=== PATIENT | female | born 2000 | race Two or more races ===

== ENCOUNTER 2024-12-27 19:32 | Emergency (ER) | payer MEDICAID, OTHER ==
[~2024-12-27] VITALS: Ht 154.9 cm; Wt 73.4 kg
[2024-12-27 19:33] VITALS: BP 130/87; PULSE 90; RESP 19; TEMP 97.7; O2SAT 99
[2024-12-27] MEDS ORDERED: PREN-96 PO (20:37)
[2024-12-27] MEDS ORDERED: METR-344 PO (22:43)
== END 2024-12-27 20:10 | disposition left against medical advice (07) ==
LOC: ER 19:32
DX: R10.31 Right lower quadrant pain (principal); Z53.21 Procedure and treatment not carried out due to patient leaving prior to being seen by health care provider

== ENCOUNTER 2024-12-27 19:56 | Observation (INO) | payer MEDICAID ==
[~2024-12-27] VITALS: Ht 152.4 cm; Wt 68.9 kg
[2024-12-27] MEDS ORDERED: PREN-96 PO (20:37)
[2024-12-27] MEDS ORDERED: TERBUTALINE SULFATE 1 MG/ML 1ML VIAL SC SCH (21:00)
[2024-12-27 21:24] LABS: Vaginal Bacteria Few; Vaginal Clue Cells Few; Vaginal Epithelial Cells Many; Vaginal Trichomonas Not Present
--- NOTE | 2024-12-27 21:49 | DVH ---
OB ULTRASOUND <14 WEEKS: HISTORY: labor TECHNIQUE: Multiple real-time grayscale sonographic images of the pelvis with duplex Doppler color f low, spectral and M-mode analysis. TRANSDUCERS: Transabdominal FINDINGS: Cervix measures 3.55 cm and appears closed MALLORY: 14.36. MVP: 5.6 cm. FHR: 148 beats per minute presentation cephalic Placenta anterior IMPRESSION: 1. IUP single live fetus 30 weeks 3 days AUA corresponding to an MERLYN of 03/04/2025. 2. FHR: 148 bpm No acute abnormality detected.
[2024-12-27] MEDS ORDERED: METR-344 PO (22:43)
--- NOTE | 2024-12-27 22:52 | DVHDS2 ---
Physician Discharge Progress N Final Diagnosis: IUP at 30w 3d Round Ligament Pain Bacterial Vaginosis in Operations or Procedures: Operations or Procedures NST Limited OB Ultrasound Tocolysis Other Interventions Other Interventions S Ms Eduardo, Waldemar G 1, 0000 with EDC of 02/27, EGA 30w 3d presents to the Place and reports she felt a sharp pain in the right inguinal region. Same resolved by the time she arrives at the unit. She reports normal movement, feels no contraction, no LOF, no vaginal Bleeding. Receiving care with [facility]. O: A&O x3 NAD. Afebrile, VSS Respiration: unlabored heart and lung sounds normal. Abdomen: Gravid, non-tender to palpation Extremities: No edema EFM FHR baseline: 145bpm, moderate variability and accelerations present Contractions: 2 in 10 minutes A: Round Ligament pain Contractions P: OB US, Oral hydration Tocolysis with Terbutaline if contractions not resolved with oral hydration Wet Mount Re-assessment O: Wet Mount- positive for Clue cells Cervical length 3.5cm Contractions Resolved FHR baseline: 150bpm moderate variability, Accelerations present Contractions resolved A: Round Ligament pain Bacterial Vaginosis in Reactive NST P: Discharge home Rx Metronidazole 500mg orally every 12hours for 7days Keep appointment with OB provider as scheduled on 01/07/25 Call OB Provider office in AM for follow up Educated on relief measures for RLP, good ergonomics, need for adequate hydration - advised to increased water intake 3rd trimester emergency S&S FMC, labor & pre-eclampsia precautions reviewed with pt; advised to seek health care if any Condition on Discharge: Good Disposition: Home Discharge Instructions: Diet: Regular Activity: No Restrictions, As Tolerated Activity comment: Balance activities with rest periods Medications: Metronidazole Follow Up Care: Discharge Statement: Educated on relief measures for RLP, good ergonomics, need for adequate hydra tion - advised to increased water intake 3rd trimester emergency S&S FMC, labor & pre-eclampsia precautions reviewed with pt; advised to seek health care if any "Patient was advised to return to the ER or call 911 if any headaches, dizziness, shortness of breath, chest pain, abdominal pain, bleeding, fevers, or worsening of medical condition. Patient was counseled about treatment plan, medications, possible side effects, patientverbalized understanding. All questions were answered to the best of my ability. This discharge took greater then 30 minutes in planning, reviewing docume ntation, counseling the patient, and discussing with other team members." Visit Coding OBGYN Date of Service: Dec 27, 2024 Billing Provider: BECKY HEREDIA CNM COOK PRESSURE Common Visit Codes: 19480-IYH/OBS SAME DATE (HIGH) COOK PRESSURE Procedure Codes: 42381-82- NON-STRESS TEST BECKY HEREDIA CNM Dec 27, 2024 22:52
== END 2024-12-27 22:53 | disposition home or self-care (01) ==
LOC: LDRP 19:56
PROVIDERS: ADMIT Obstetrics & Gynecology; ATTEND Obstetrics & Gynecology
DX: O23.593 Infection of other part of genital tract in pregnancy, third trimester (principal); B96.89 Other specified bacterial agents as the cause of diseases classified elsewhere; O26.893 Other specified pregnancy related conditions, third trimester; R10.2 Pelvic and perineal pain; Z3A.30 30 weeks gestation of pregnancy; Z98.890 Other specified postprocedural states; Z79.899 Other long term (current) drug therapy
CPT/HCPCS: 59025; 76815; 81002; 87210; 94760; G0378; J3105; 96372

== ENCOUNTER 2024-12-29 07:18 | Observation (INO) | payer MEDICAID ==
[~2024-12-29 07:18] MED LIST: METR-344 PO; PREN-96 PO
--- NOTE | 2024-12-29 15:22 | DVH ---
OB ULTRASOUND <14 WEEKS: HISTORY: HX PTL TECHNIQUE: Multiple real-time grayscale sonographic images of the pelvis with duplex Doppler color f low, spectral and M-mode analysis. TRANSDUCERS: Transabdominal COMPARISON: US OBSTERICAL LIMITED on DOS: 12/27/24 Findings/ IMPRESSION: Cephalic presentation. Anterior placenta. heart rate 152 beats per minute Current MALLORY 16.4 cm, previously 14.4 cm. Cervix is closed and measures 4.2 cm.
--- NOTE | 2024-12-29 17:00 | DVHDS2 ---
Physician Discharge Progress N Final Diagnosis: testing for PTL UTI Operations or Procedures: Operations or Procedures 24yo IUP@30.5wks, +FM, denies UCs/LOF/VB. had UTI taking antibiotics still. VSS NST reactive FKC/PTL precautions reviewed Dr. Arreola consulted, agrees with POC. f/u with Dr. Arreola in office as schedule Other Interventions Other Interventions [place] [address] Ph: [phone] DIAGNOSTIC IMAGING Diagnostic Imaging Report : [id number] Signed PATIENT: ALEXA MÁRQUEZ ACCT: [id number] UNIT: [id number] : 2000 LOC: [facility] ROOM / BED: TRIAGE1 / A AGE / SEX: 24 / F ADM STATUS: ADM IN SERVICE 27 ORDERING PHYSICIAN: VIPIN LAGOS CNM PROCEDURE(s): OBLTD - OBSTERICAL LIMITED REASON: HX PTL ORDER NUMBER(s): [id number], ACCESSION NUMBER(s): [id number] OB ULTRASOUND <14 WEEKS: HISTORY: HX PTL TECHNIQUE: Multiple real-time grayscale sonographic images of the pelvis with duplex Doppler color flow, spectral and M-mode analysis. TRANSDUCERS: Transabdominal COMPARISON: US OBSTERICAL LIMITED on DOS: 12/27/24 Findings/ IMPRESSION: Cephalic presentation. Anterior placenta. heart rate 152 beats per minute Current MALLORY 16.4 cm, previously 14.4 cm. Cervix is closed and measures 4.2 cm. ATED BY: PUNEET EASON MD DICTATED DATE/TIME: 12/29/241518 SIGNED BY: PUNEET EASON MD SIGNED DATE/TIME: 12/29/241518 CC: Condition on Discharge: Stable Disposition: Home Discharge Instructions: Diet: Regular Activity: See Comment Activity comment: pelvic rest Medications: see med list Follow Up Care: Specialist: f/u with Dr. Arreola in office as schedule Discharge Statement: "Patient was advised to return to the ER or call 911 if any headaches, dizziness, shortness of breath, chest pain, abdominal pain, bleeding, fevers, or worsening of medical condition. Patient was counseled about treatment plan, medications, possible side effects, patientverbalized understanding. All questions were answered to the best of my ability. This discharge took greater then 30 minutes in planning, reviewing documentation, counseling the patient, and discussing with other team members." Visit Coding OBGYN Date of Service: Dec 29, 2024 Billing Provider: VIPIN LAGOS CNM STRATEGY MANAGER Common Visit Codes: 06594-SOSARAY OBS CARE (HIGH) STRATEGY MANAGER Procedure Codes: 31302-43- NON-STRESS TEST VIPIN LAGOS CNM Dec 29, 2024 17:00
== END 2024-12-29 15:49 | disposition home or self-care (01) ==
LOC: LDRP 13:53
PROVIDERS: ADMIT Obstetrics & Gynecology; ATTEND Obstetrics & Gynecology
DX: O60.03 Preterm labor without delivery, third trimester (principal); O23.43 Unspecified infection of urinary tract in pregnancy, third trimester; N39.0 Urinary tract infection, site not specified; Z3A.30 30 weeks gestation of pregnancy; Z98.890 Other specified postprocedural states
CPT/HCPCS: 59025; 76815; 81002; 94760; G0378

== ENCOUNTER 2025-03-04 08:58 | Observation (INO) | payer MEDICAID ==
--- NOTE | 2025-03-04 09:55 | DVH ---
BIOPHYSICAL PROFILE HISTORY: GDMA2 and PTL TECHNIQUE: Multiple transabdominal real-time grayscale sonographic images through the gravid uterus of the fetus with duplex Doppler color flow and M-mode spectral analysis FINDINGS: BIOPHYSICAL PROFILE: breathing score: 2 movement score: 2 tone score: 2 Quantitative MALLORY score: 2 (MALLORY: 11.4 Cm, MVP: 3.9 cm.) Total score: 8/8 The cervix 3.8 cm and appears closed Single live fetus in cephalic presentation. heart rate 143 beats per minute. Anterior Grade 2-3 placenta without previa or abruption Single live fetus at 40w0d Biophysical profile score 8/8 [place] [address] IMPRESSION: 1. Biophysical profile score: 8/8.
--- NOTE | 2025-03-05 11:41 | DVHDS2 ---
Physician Discharge Progress N Final Diagnosis: 40wks Operations or Procedures: Operations or Procedures nst reactive reviewed,sono Condition on Discharge: Good Disposition: Home Discharge Instructions: Diet: Regular Activity: No Restrictions, As Tolerated Medications: na Follow Up Care: Specialist: refused iol,fu in 2days Discharge Statement: "Patient was advised to return to the ER or call 911 if any headaches, dizziness, shortness of breath, chest pain, abdominal pain, bleeding, fevers, or worsening of medical condition. Patient was counseled about treatment plan, medications, possible side effects, patientverbalized understanding. All questions were answered to the best of my ability. This discharge took greater then 30 minutes in planning, reviewing documentation, counseling the patient, and discussing with other team members." Visit Coding OBGYN Date of Service: Mar 04, 2025 Billing Provider: CHARMAINE VALDEZ DO SHIRT MAKER Common Visit Codes: 17238-OTNOBBN INP/OBS CARE (HIGH) SHIRT MAKER Procedure Codes: 12669-43- NON-STRESS TEST CHARMAINE VALDEZ DO Mar 05, 2025 08:51
== END 2025-03-04 10:21 | disposition home or self-care (01) ==
LOC: LDRP 08:58
PROVIDERS: ADMIT Obstetrics & Gynecology; ATTEND Obstetrics & Gynecology
DX: O48.0 Post-term pregnancy (principal); Z3A.40 40 weeks gestation of pregnancy
CPT/HCPCS: 59025; 76819; 81002; 94760; G0378

== ENCOUNTER 2025-03-06 10:55 | Observation (INO) | payer MEDICAID ==
--- NOTE | 2025-03-06 12:10 | DVH ---
CLINICAL HISTORY: Term . COMPARISON: US BIOPHYSICAL PROFILE on DOS: 03/04/25, US OBSTERICAL LIMITED on DOS: 12/29/24, US OBSTER ICAL LIMITED on DOS: 12/27/24 TECHNIQUE: biophysical profile was performed. Transabdominal sonographic images of the fetus we re obtained. FINDINGS: The fetus is in cephalic position. heart rate measures 153 BPM. Amniotic fluid index measures 9.8 cm. The placenta is anterior in position with no visualized evidence of previa or abrupt ion. BPP profile is an overall score of 8/8, with 2/2 points for breathing, with at least one episode of breathing over a 30 second duration during a 30 minute observation, 2/2 points for m ovements, with 3 or more discrete body or limb movements, 2/2 points for tone, with one or more episodes of extremity extension with return to flexion, or opening and closing of hand, and 2/ 2 points for amniotic fluid, with at least 1 pocket of amniotic fluid that measures 2 cm in 2 perpend icular planes. IMPRESSION: BPP score of 8/8.
== END 2025-03-06 12:34 | disposition home or self-care (01) ==
LOC: LDRP 10:55
PROVIDERS: ADMIT Obstetrics & Gynecology; ATTEND Obstetrics & Gynecology
DX: O48.0 Post-term pregnancy (principal); Z3A.40 40 weeks gestation of pregnancy; Z98.890 Other specified postprocedural states
CPT/HCPCS: 59025; 76819; 81002; 94760; G0378

== ENCOUNTER 2025-03-08 06:37 | Observation (INO) | payer MEDICAID ==
--- NOTE | 2025-03-08 12:44 | DVH ---
BIOPHYSICAL PROFILE HISTORY: post dates Comparison Study: US BIOPHYSICAL PROFILE on DOS: 03/06/25, US BIOPHYSICAL PROFILE on DOS: 03/04/25, US OBSTERICAL LIMITED on DOS: 12/29/24, US OBSTERICAL LIMITED on DOS: 12/27/24 TECHNIQUE: Multiple real-time grayscale sonographic images through the gravid uterus of the fetus wi th duplex Doppler color flow and M-mode spectral analysis FINDINGS: BIOPHYSICAL PROFILE: breathing score: 157.66 movement score: 2 tone score: 2 Quantitative MALLORY score: 13.2 (MALLORY: 13.2 Cm.) Total score: 8 The cervix is not visualized Single live fetus in cephalic presentation. heart rate 157 beats per minute. Grade 2, anterior placenta without previa or abruption IMPRESSION: Biophysical profile score: 8
--- NOTE | 2025-03-08 22:59 | DVHDS2 ---
Discharge Summary Date of Admission Mar 08, 2025 at 11:52 Date of Discharge: Mar 08, 2025 Admitting Diagnosis 40+ weeks NST BPP performed Brief Hx & Hospital Course: Patient is here good movement for NST BPP scheduled. Both reassuring and performed Operations or Procedures NST Bpp Condition at Discharge: Good Final Diagnosis/Problems List 40 +weeks Discharge Disposition: Home Discharge Instruct/Medications Diet: Regular Activity: No Restrictions, As Tolerated Activity comment: Kick counts labor precautions Follow Up/Referral: As scheduled NST BPP Scheduled Metronidazole (Flagyl), 500 MG PO BID, (Reported) Vit W/ Ferrous Fumara ( One Daily), 1 TAB PO DAILY, (Reported) Discharge Statement: "Patient was advised to return to the ER or call 911 if any headaches, dizziness, shortness of breath, chest pain, abdominal pain, bleeding, fevers, or worsening of medical condition. Patient was counseled about treatment plan, medications, possible side effects, patientverbalized understanding. All questions were answered to the best of my ability. This discharge took greater then 30 minutes in planning, reviewing documentation, counseling the patient, and discussing with other team members." ASSESSMENT ASSESSMENT Assessment Visit Coding OBGYN Date of Service: Mar 08, 2025 Billing Provider: TAB SANCHEZ DO CAR CHANGER Common Visit Codes: [id number] INP/OBS CARE(MOD), 35739-[id number] INP/OBS CARE(HIGH), 86724-COU/OBS SAME DATE (LOW) CAR CHANGER Procedure Codes: 02749-52- NON-STRESS TEST TAB SANCHEZ DO Mar 08, 2025 22:59
== END 2025-03-08 12:05 | disposition home or self-care (01) ==
LOC: LDRP 11:52
PROVIDERS: ADMIT Obstetrics & Gynecology; ATTEND Obstetrics & Gynecology
DX: O48.0 Post-term pregnancy (principal); Z3A.40 40 weeks gestation of pregnancy; Z98.890 Other specified postprocedural states
CPT/HCPCS: 59025; 76819; 81002; 94760; G0378

== ENCOUNTER 2025-03-10 15:51 | Observation (INO) | payer MEDICAID ==
--- NOTE | 2025-03-10 17:25 | DVH ---
BIOPHYSICAL PROFILE HISTORY: Term Gestation TECHNIQUE: Multiple transabdominal real-time grayscale sonographic images through the gravid uterus of the fetus with duplex Doppler color flow and M-mode spectral analysis FINDINGS: BIOPHYSICAL PROFILE: breathing score: 2 movement score: 2 tone score: 2 Quantitative MALLORY score: 2 (MALLORY: 16.0 cm, MVP: 4.6 cm.) Total score: 8/8 The cervix obscured by head Single live fetus in cephalic presentation. heart rate 149 beats per minute. Anterior Grade 2 placenta without previa or abruption Single live fetus at 40 weeks 6 days Biophysical profile score 8/8 corresponding to an MERLYN of 03/04/2025 IMPRESSION: 1. Biophysical profile score: 8/8
--- NOTE | 2025-03-12 14:47 | DVHDS2 ---
Physician Discharge Progress N Final Diagnosis: post dates 40wks Operations or Procedures: Operations or Procedures nst reactive reviwed,sono Other Interventions Other Interventions refuses induction understands risk and complication of postdates,possib of iufd,macrosomia and otehr morbidity/mortality issues related to postdaytes Condition on Discharge: Good Disposition: Home Discharge Instructions: Diet: Regular Activity: No Restrictions, As Tolerated Medications: na Follow Up Care: Specialist: 2d Discharge Statement: "Patient was advised to return to the ER or call 911 if any headaches, di zziness, shortness of breath, chest pain, abdominal pain, bleeding, fevers, or worsening of medical condition. Patient was counseled about treatment plan, medications, possible side effects, patientverbalized understanding. All questions were answered to the best of my ability. This discharge took greater then 30 minutes in planning, reviewing documentation, counseling the patient, and discussing with other team members." Visit Coding OBGYN Date of Service: Mar 11, 2025 Billing Provider: CHARMAINE VALDEZ DO EMT PARAMEDIC Common Visit Codes: 94448-CILHMMT OBS CARE (HIGH) EMT PARAMEDIC Procedure Codes: 88679-35- NON-STRESS TEST CHARMAINE VALDEZ DO Mar 12, 2025 14:46
== END 2025-03-10 17:42 | disposition home or self-care (01) ==
LOC: LDRP 15:51 → UNDOADMOB 15:51 → LDRP 16:23 → UNDODISOB 17:42
PROVIDERS: ADMIT Obstetrics & Gynecology; ATTEND Obstetrics & Gynecology
DX: O48.0 Post-term pregnancy (principal); Z3A.40 40 weeks gestation of pregnancy; Z98.890 Other specified postprocedural states
CPT/HCPCS: 59025; 76819; 81002; 94760; G0378

== ENCOUNTER 2025-03-12 07:10 | Observation (INO) | payer MEDICAID ==
[~2025-03-12] VITALS: Ht 154.9 cm; Wt 78.9 kg
--- NOTE | 2025-03-12 16:06 | DVH ---
BIOPHYSICAL PROFILE HISTORY: Post Dates TECHNIQUE: Multiple transabdominal real-time grayscale sonographic images through the gravid uterus of the fetus with duplex Doppler color flow and M-mode spectral analysis FINDINGS: BIOPHYSICAL PROFILE: breathing score: 2 movement score: 2 tone score: 2 Quantitative MALLORY score: 2 (MALLORY: 13.9 cm, MVP: 5.0 cm.) Total score: 8/8 The cervix obscured by head Single live fetus in cephalic presentation. heart rate 161 beats per minute. Anterior Grade 3 placenta without previa or abruption Single live fetus at41 weeks 1 day Biophysical profile score 8/8 [place] [address] IMPRESSION: 1. Biophysical profile score: 8/8
--- NOTE | 2025-03-12 18:31 | DVHDS2 ---
Physician Discharge Progress N Final Diagnosis: IUP 41 wk Secondary Diagnosis: Encounter for surveillance Operations or Procedures: Operations or Procedures NST/BPP/MALLORY all WNL Commentary: Commentary PATIENT: ALEXA MÁRQUEZ ACCT: [id number] UNIT: [id number] : 2000 LOC: [facility] ROOM / BED: TRIAGE1 / A AGE / SEX: 25 / F ADM STATUS: DIS IN SERVICE 1403 ORDERING PHYSICIAN: BRITTNY MARTINEZ DO PROCEDURE(s): BPP - BIOPHYSICAL PROFILE REASON: Post Dates ORDER NUMBER(s): [id number], ACCESSION NUMBER(s): [id number] BIOPHYSICAL PROFILE HISTORY: Post Dates TECHNIQUE: Multiple transabdominal real-time grayscale sonographic images through the gravid uterus of the fetus with duplex Doppler color flow and M-mode spectral analysis FINDINGS: BIOPHYSICAL PROFILE: breathing score: 2 movement score: 2 tone score: 2 Quantitative MALLORY score: 2 (MALLORY: 13.9 cm, MVP: 5.0 cm.) Total score: 8/8 The cervix obscured by head Single live fetus in cephalic presentation. heart rate 161 beats per minute. Anterior Grade 3 placenta without previa or abruption Single live fetus at41 weeks 1 day Biophysical profile score 8/8 [place] [id number] IMPRESSION: 1. Biophysical profile score: 8/8 ATED BY: LIANA KOCH Jr., DO Condition on Discharge: Stable Disposition: Home Discharge Instructions: Diet: Regular Activity: Light activity Follow Up/Referral: As scheduled; Recommended labor induction, but patient declined. Repeat NST/BPP in 48hr Medications: N/A Follow Up Care: Discharge Statement: "Patient was advised to return to the ER or call 911 if any headaches, dizziness, shortness of breath, chest pain, abdominal pain, bleeding, fevers, or worsening of medical condition. Patient was counseled about treatment plan, medications, possible side effects, patientverbalized understanding. All questions were answered to the best of my ability. This discharge took greater then 30 minutes in planning, reviewing documentation, counseling the patient, and discussing with other team members." Visit Coding OBGYN Date of Service: Mar 12, 2025 Billing Provider: BRITTNY MARTINEZ DO ADMINISTRATIVE SUPERVISOR Common Visit Codes: 73030-LTO/OBS SAME DATE (HIGH) ADMINISTRATIVE SUPERVISOR Procedure Codes: 63130-14- NON-STRESS TEST BRITTNY MARTINEZ DO Mar 12, 2025 18:31
== END 2025-03-12 15:41 | disposition home or self-care (01) ==
LOC: LDRP 14:02
PROVIDERS: ADMIT Obstetrics & Gynecology; ATTEND Obstetrics & Gynecology
DX: O48.0 Post-term pregnancy (principal); Z3A.41 41 weeks gestation of pregnancy; Z98.890 Other specified postprocedural states; Z79.899 Other long term (current) drug therapy
CPT/HCPCS: 59025; 76819; 81002; 94760; G0378

== ENCOUNTER 2025-03-14 05:54 | Inpatient (IN) | payer MEDICAID ==
[~2025-03-14] VITALS: Ht 154.9 cm; Wt 78.9 kg
[2025-03-14] MEDS ORDERED: NALBUPHINE HCL 10 MG/1ml INJECTION IV PRN (20:30)
[2025-03-14] MEDS ORDERED: LIDOCAINE 2%HCL (LOCAL ANESTH.) INJ 20ML MDV IJ PRN (20:30)
[2025-03-14 21:37] LABS: Urine Protein, UAD Negative (Negative)
[2025-03-14 21:38] LABS: Hematocrit 37.8 % (36.0-46.0); Hemoglobin 13.3 g/dL (12.2-16.2); Mean Corpuscular Hemoglobin 30.7 pg (28.0-32.0); Mean Corpuscular Volume 87.7 fL (80.0-100.0); Nucleated Red Blood Cells % 0.0 %
--- NOTE | 2025-03-14 21:38 | DVHHP2 ---
OB CC & HPI Date Date of Admission: Mar 14, 2025 Patient Identification: : 1 Para: 0 EDC: Mar 04, 2025 Chief Complaints: Reason for admission: induction of labor Indication for induction: post dates Admission Nurse Assessment Rev: Yes History of Present Complaints L&D Admission Note Subjective 03/14/2025 25 y/o (0,0,0,0) @ 41 w3 d EGA presents to the Place for IOL for postdates / Grade 3 Placenta Reports of good movement Denies VB/LOF/dysuira Received care with Dr Arreola LMP: 05/28/2024 EDC: 03/04/[address] Arreola - normal course No known complications in Blood Type: A Positive HIV: Non Reactive GBS: Negative Medical History OB: G#1 Current PMH: Denies PSH: Denies Medications: PNV Social Hist: Denies Objective PE:A&O x3, Well groomed Afebrile, VSS Heart & Lungs: Normal sound Abdomen: Gravid non- tender, SVE : CX Closed Assessment Admission for IOL for Postdate Grade 3 Placenta 25 y/o (0,0,0,0) IUP 41w3d FHR baseline 145 bpm, moderate variability Accelerations : Present Decelerations: Absent Preliminary ultrasound report Cephalic presentation EFW 7lb 15oz / 3600 grams Plan Admission IVF Bedside ultrasound for Presentation / EFW Misoprostol 50 mcg oral for method of IOL Plan of care discussed with Patient and partner Process, Risks, benefits, of available management options discussed, Internal monitoring of UCs & FHT, AROM, amnioinfusion etc only when indicated. Patient agrees to starting with misoprostol Informed Consent obtained Consent for possible blood transfusion obtained. All questions answered. Admit to Place for Labor / IOL Routine L&D Admission orders EFM per policy Encourage ambulation and/exercises / frequent position change to facilitate labor & descent Supportive care Anticipate Past Medical History Cardiac: No pertinent Hx Pulmonary: No pertinent Hx Central Nervous System: No pertinent Hx GI: No pertinent Hx Hemotology/Oncology: No pertinent Hx Hepatobiliary: No pertinent Hx Psychiatric: No pertinent Hx Musculoskeletal: No pertinent Hx Rheumotologic: No pertinent Hx Infectious Disease: No peritnent Hx ENT: No pertinent Hx Renal/: No pertinent Hx Endocrine: No pertinent Hx Dermatology: No pertinent Hx Past Surgical History: No pertinent Hx OB History OB History Care: Good Care Ultrasounds: Normal mid trimester US Obstetrical Complications: None Medical Complications: None Other Concerns: Grade 3 Placenta Allergies: Coded Allergies: NO KNOWN ALLERGIES (Unverified , 12/27/24) Home Meds Reported Medications Metronidazole (Flagyl) 500 Mg Tab, 500 MG PO BID for 7 Days, MG 12/27/24 Vit W/ Ferrous Fumara ( One Daily) Daily Tab, 1 TAB PO DAILY, #90 TAB 3 Refills 12/27/24 Current Medications Current Medications Medications (Trade) Dose Ordered Sig/Luis Route PRN Reason Start Time Stop Time Status Last Admin Lactated Ringer's 1,000 ml @ 125 mls/hr Q8H IV 03/14/25 20:30 Nalbuphine HCl (Nubain) 10 mg Q4HP PRN IV MODERATE PAIN (4-6 PAIN SCALE) 03/14/25 20:30 Witch Kareen (Tucks) 1 pad PRN PRN TOP PERINEAL AREA DISCOMFORT 03/14/25 20:30 Sodium Lauryl Sulfate (Phisoderm) 240 ml PRN PRN TOP PERINEAL AREA DISCOMFORT 03/14/25 20:30 Benzocaine (Dermoplast) 1 applic PRN PRN TOP PERINEAL AREA DISCOMFORT 03/14/25 20:30 Misoprostol (Cytotec) 50 mcg Q4HPRN PRN PO CERVICAL RIPENING 03/14/25 20:30 Lidocaine HCl (Xylocaine) 20 ml ONCE PRN IJ PERINEAL AREA DISCOMFORT 03/14/25 20:30 Family & Social History Family/Social History Blood Type: A+ Rubella: immune RPR/VDRL: Negative GBS Status: Negative HBsAG: Negative Review of Systems Constitutional: No symptom reported Ears, Nose, & Throat: No symptom reported Eyes: No symptom reported Pulmonary/Respiratory: No symptom reported Cardiovascular: No symptom reported Gastrointestinal: No symptom reported Genitourinary: No symptom reported Musculoskeletal: No symptom reported Skin: No symptom reported Psychiatric: No symptom reported Endocrine: No symptom reported Hemotologic/Lymphatic: No symptom reported OB Admission Exam Physical Exam HEENT: NCAT Heart: Rhythm Normal Lungs: Clear Abdomen: Gravid Extremities: Normal Reflexes: Normal Pelvic Exam: CX Closed Cervical Dilatation: None Membranes: Intact Heart Rate: 140's Accelerations: Accelerations Present Decelerations: No Decelerations Short Term Variability: Present Leadite Heater Variability: Average (6-25) Contractions on Admission: None Intensity: Mild OB Plan Plan Admitting Diagnosis: induction of labor Plan: Induction Induction Methd: Misoprostol protocol Visit Coding OBGYN Date of Service: Mar 14, 2025 Billing Provider: SABRINA CHACON CNM PHOTO LAB MANAGER Common Visit Codes: 65263-IBMGXEX INP/OBS CARE (MOD) SABRINA CHACONMNov 2024 21:38
[2025-03-14 21:52] LABS: Alanine Aminotransferase 16 U/L (7-40); Albumin 3.9 g/dL (3.2-4.8); Anion Gap 14 (5-15); BUN/Creatinine Ratio 10.1 (10.0-20.0); Bilirubin, Total 0.4 mg/dL (0.2-1.0); Blood Urea Nitrogen 10 mg/dL (9-23); Calcium 9.3 mg/dL (8.7-10.4); Carbon Dioxide 21 mmol/L (20-31); Chloride 105 mmol/L (98-107); Glucose 76 mg/dL (74-106); Potassium 3.7 mmol/L (3.5-5.1); Sodium 140 mmol/L (136-145); Total Protein 7.2 g/dL (5.7-8.2)
[2025-03-14 21:55] LABS: Alkaline Phosphatase 156 U/L (46-116)
[2025-03-14 21:58] LABS: INR 0.93 (0.9-1.15); Partial Thromboplastin Time 28.2 SEC (24.5-34.5); Prothrombin Time 9.9 sec (9.3-11.8)
[2025-03-14 22:04] LABS: Uric Acid 4.7 mg/dL (3.1-7.8)
[2025-03-14 23:18] LABS: Amphetamine Screen, Urine Neg (NEGATIVE); Barbiturate Scree,Urine Neg (NEGATIVE); Benzodiazephine Screen, Urine Neg (NEGATIVE); Opiate Scree,Urine Neg (NEGATIVE); Phencyclidine Screen, Urine Neg (NEGATIVE)
[2025-03-14 23:19] LABS: Cannabinoid Screen, Urine Neg (NEGATIVE); Cocaine Screen, Urine Neg (NEGATIVE)
--- NOTE | 2025-03-14 23:19 | DVH ---
EXAM: US OB ULTRASOUND COMP GTR 14 WKS HISTORY: IOL- Presentation and efw TECHNIQUE: Multiple real-time grayscale images of the gravid uterus with duplex Doppler color flow and M-mode spectral analysis. COMPARISON: US BIOPHYSICAL PROFILE on DOS: 03/12/25, US BIOPHYSICAL PROFILE on DOS: 03/10/25, US BIOPHYSICAL PROFILE on DOS: 03/08/25, US BIOPHYSICAL PROFILE on DOS: 03/06/25, US BIOPHYSICAL PROFILE on DOS: 03/04/25 FINDINGS: IUP single live fetus at 39 weeks 0 days average ultrasound age (AUA) based on composite averages of the BPD, head circumference, abdominal circumference and femur length Age based on (early ultrasound) : 41 weeks 3 days MEASUREMENTS: BPD: 9.4 cm GA: 38 w 1 d HC: 33.8 cm GA: 38 w 5 d AC: 34.3 cm GA: 38 w 1 d FL: 8.0 cm GA: 40 w 5 d Estimated weight 3613+/-542 grams; 7 lbs 15 oz +/-19 oz, 55th percentile. heart rate 136 beats per minute MALLORY 12.9 cm, MVP 5.3 cm ANATOMIC SURVEY: Complete anatomic survey was not performed at this time. Cephalic Presentation Anterior grade III placenta without previa or abruption Cervix was not visualized. IMPRESSION: 1. IUP single live fetus with positive heart tones at 39 weeks 0 days AUA corresponding to an MERLYN of 03/21/2025. 2. No abnormality detected.
[2025-03-15 00:44] LABS: Fibrinogen 530.0 mg/dL (177-375)
[2025-03-15] MEDS: WITCH HAZEL-GLYCERIN PAD TOP PRN (04:00)
[2025-03-15] MEDS: PHISODERM TOP SOLN 240ML BTL TOP PRN (04:00)
[2025-03-15] MEDS: DERMOPLAST 60ML BOTTLE TOP PRN (04:00)
--- NOTE | 2025-03-15 05:15 | DVHPN2 ---
CNM Labor Progress Note Date and Time Seen Date Seen: Mar 15, 2025 Time Seen: 05:08 Subjective Patient reports: No new complaints Subjective Comment 25 y/o (0,0,0,0) @ 41w4 d SHRUTI presents to the Place for IOL for postdates / Grade 3 Placenta Reports of good movement Denies VB/LOF/dysuira Received care with Dr Arreola LMP: 05/28/2024 EDC: 03/04/[address] Arreola - normal course No known complications in Blood Type: A Positive HIV: Non Reactive GBS: Negative Monitoring Method Monitoring Method: External Heart Rate Heart Rate Baseline: 145 Heart Rate Variability: Moderate Presence of FHR Accelerations: Yes Presence of FHR Decelerations: No Changes in Trends of Patterns: No Are all 5 Components of the FH: Yes Contractions Contractions Frequency: Occasional Duration of Contraction: 0 (60-90 seconds ) Contractions Intensity: Moderate Contractions Resting Tone: Relaxed Membranes Membranes: Intact Vaginal Exam Vag Exam Deferred: Yes Vaginal Exam Dilation: 0 Vaginal Exam Show: None Medications Medications - Pitocin: No Medications - Pain Medications: None Medication - Epidural: No Lab Results Lab Results Current Medications Medications (Trade) Dose Ordered Sig/Luis Start Time Stop Time Status Last Admin Dose Admin Lactated Ringer's 1,000 ml @ 125 mls/hr Q8H 03/14/25 20:30 Nalbuphine HCl (Nubain) 10 mg Q4HP PRN 03/14/25 20:30 Stacy Mathur (Tucks) 1 pad PRN PRN 03/14/25 20:30 03/15/25 04:00 1 PAD Sodium Lauryl Sulfate (Phisoderm) 240 ml PRN PRN 03/14/25 20:30 03/15/25 04:00 240 ML Benzocaine (Dermoplast) 1 applic PRN PRN 03/14/25 20:30 03/15/25 04:00 1 APPLIC Misoprostol (Cytotec) 50 mcg Q4HPRN PRN 03/14/25 20:30 03/15/25 04:00 50 MCG Lidocaine HCl (Xylocaine) 20 ml ONCE PRN 03/14/25 20:30 Oxytocin 1,000 ml @ 6 ml/hr Q24H 03/14/25 22:30 Oxytocin 500 ml @ 999 mls/hr Q31M ONCE 03/14/25 22:30 03/14/25 23:00 DC Oxytocin 500 ml @ 125 mls/hr Q4H ONCE 03/14/25 23:00 03/15/25 02:59 DC Laboratory Tests Test 03/14/25 20:46 Range/Units White Blood Count 9.7 4.4-10.8 10^3/uL Red Blood Count 4.32 4.0-5.20 10^6/uL Hemoglobin 13.3 12.2-16.2 g/dL Hematocrit 37.8 36.0-46.0 % Mean Corpuscular Volume 87.7 80.0-100.0 fL Mean Corpuscular Hemoglobin 30.7 28.0-32.0 pg Mean Corpuscular Hemoglobin Concent 35.0 32.0-36.0 g/dL Red Cell Distribution Width 13.5 11.8-14.3 % Platelet Count 164 140-450 10^3/uL Mean Platelet Volume 10.0 6.9-10.8 fL Neutrophils (%) (Auto) 64.9 37.0-80.0 % Lymphocytes (%) (Auto) 25.8 10.0-50.0 % Monocytes (%) (Auto) 8.8 0.0-12.0 % Eosinophils (%) (Auto) 0.3 0.0-7.0 % Basophils (%) (Auto) 0.2 0.0-2.0 % Neutrophils # (Auto) 6.3 1.6-8.6 10 ^3/uL Lymphocytes # (Auto) 2.5 0.4-5.4 10 ^3/uL Monocytes # (Auto) 0.9 0-1.3 10 ^3/uL Eosinophils # (Auto) 0 0-0.8 10 ^3/uL Basophils # (Auto) 0 0-0.2 10 ^3/uL Nucleated Red Blood Cells 0.0 % Prothrombin Time 9.9 9.3-11.8 sec Prothrombin Time INR 0.93 0.9-1.15 Activated Partial Thromboplast Time 28.2 24.5-34.5 SEC Fibrinogen 530 H 177-375 mg/dL Urine Color Colorless Yellow Urine Clarity Clear Clear Urine pH 6.5 5.0-9.0 Urine Specific [place] 1.005 1.001-1.035 Urine Protein Negative Negative Urine Ketones Negative Negative Urine Blood Negative Negative /uL Urine Nitrite Negative Negative Urine Bilirubin Negative Negative Urine Urobilinogen Normal Negative mg/dL Urine Leukocyte Esterase Negative Negative /uL Urine RBC <1 0 - 4 /hpf Urine Microscopic WBC 1 0-5 /HPF Urine Squamous Epithelial Cells Few <5 /hpf Urine Bacteria Few H None Seen /hpf Urine Glucose Normal Normal mg/dL Sodium Level 140 136-145 mmol/L Potassium Level 3.7 3.5-5.1 mmol/L Chloride Level 105 98-107 mmol/L Carbon Dioxide Level 21 20-31 mmol/L Anion Gap 14 5-15 Blood Urea Nitrogen 10 9-23 mg/dL Creatinine 0.99 0.550-1.02 mg/dL Glomerular Filtration Rate Calc 82 >90 mL/min BUN/Creatinine Ratio 10.1 10.0-20.0 Serum Glucose 76 74-106 mg/dL Uric Acid 4.7 3.1-7.8 mg/dL Calcium Level 9.3 8.7-10.4 mg/dL Total Bilirubin 0.4 0.2-1.0 mg/dL Aspartate Amino Transferase (AST) 24 13-40 U/L Alanine Aminotransferase (ALT) 16 7-40 U/L Alkaline Phosphatase 156 H 46-116 U/L Total Protein 7.2 5.7-8.2 g/dL Albumin 3.9 3.2-4.8 g/dL Urine Opiates Screen Neg NEGATIVE Urine Fentanyl Screen Neg NEGATIVE Urine Barbiturates Screen Neg NEGATIVE Urine Phencyclidine Screen Neg NEGATIVE Urine Amphetamines Screen Neg NEGATIVE Urine Benzodiazepines Screen Neg NEGATIVE Urine Cocaine Screen Neg NEGATIVE Urine Cannabinoids Screen Neg NEGATIVE Treponema pallidum Antibody Non-reactive Negative Hepatitis B Surface Antigen Negative Negative Hepatitis C Antibody Negative Negative HIV (1&2) Antibody Negative Negative Rubella Antibody Pending Assessment Assessment Assessment IOL for Postdates/ Grade 3 Placenta 25 y/o (0,0,0,0) IUP 41w4d Received Misoprostol 50 mcg orally X2 dose FHR baseline 145 bpm, moderate variability Accelerations : Present Decelerations: Absent Contractions: 2-4.5 min Duration: 40-90 seconds Category 1 tracing Preliminary ultrasound report Cephalic presentation EFW 7lb 15oz / 3600 grams Plan Plan Plan Continued with IOL Misoprostol per protocol Unable to place Cervical Ripening Balloon due to closed CX Will transfer care to oncoming shift Dr Keith Continue with P.O.C Anticipate Plan discussed with: Patient Visit Coding OBGYN Date of Service: Mar 15, 2025 Billing Provider: SABRINA CHACON CNM SUPERVISOR [employer]ING Common Visit Codes: [id number] INP/OBS CARE (MOD) SABRINA CHACONMNov 2024 05:15
[2025-03-15] MEDS: LACTATED RINGER'S 1,000 ML IV SCH (12:30)
[2025-03-15] MEDS: DINOPROSTONE 10MG VAG SUPP PV ONE (22:24)
--- NOTE | 2025-03-16 05:25 | DVHPN2 ---
Chief Complaints Patient reports: No new complaints, Feels better Nursing reports: No new complaints, No abdominal pain, No chest pain, No dizziness, No cough, Other (Induction of labor post dates day 3 last placed was Cervidil proximally 10:30 p.m. 03/15/2025) Objective Vitals Afebrile vital signs stable Medications Cervidil was her last dose last night General: Normal Neck: Normal Lungs: Normal Cardiovascular: Normal Abdominal: Normal (Gravid judson's 7.5 lb) Musculoskeletal: Normal Extremities: Normal, No clubbing Skin: Normal, Normal inspection Neurological: Normal Studies Laboratory Tests 03/14/25 20:46 Test 03/14/25 20:46 Range/Units Serum Glucose 76 74-106 mg/dL Ass/Plan Assessment Hospital day 3 induction post dates Plan Continuing induction reassuring maternal and findings. TAB SANCHEZ DO Mar 16, 2025 05:25
--- NOTE | 2025-03-16 08:11 | DVHPN2 ---
CNM Labor Progress Note Date and Time Seen Date Seen: Mar 16, 2025 Time Seen: 08:08 Subjective Subjective Comment Patient reports feeling more frequent contractions, desires to ambulate Objective Vital Signs VSS - See CPN EFW: 3613g Vertex Monitoring Method Monitoring Method: External Heart Rate Heart Rate Baseline: 140 Heart Rate Variability: Moderate Presence of FHR Accelerations: Yes Presence of FHR Decelerations: No Are all 5 Components of the FH: Yes Contractions Contractions Frequency: Other (q3-6 min) Duration of Contraction: 80 Contractions Intensity: Mild Contractions Resting Tone: Relaxed Membranes Membranes: Intact Vaginal Exam Vag Exam Deferred: Yes (SVE by RN: fingertip/thick/high) Medications Medications - Pitocin: No Medications - Pain Medications: PRN Medication - Epidural: No Medication - Other S/P Cytotec x5 PO Cervidil Lab Results Lab Results Current Medications Medications (Trade) Dose Ordered Sig/Luis Start Time Stop Time Status Last Admin Dose Admin Lactated Ringer's 1,000 ml @ 125 mls/hr Q8H 03/14/25 20:30 03/16/25 06:08 125 MLS/HR Nalbuphine HCl (Nubain) 10 mg Q4HP PRN 03/14/25 20:30 Witch Kareen (Tucks) 1 pad PRN PRN 03/14/25 20:30 03/15/25 04:00 1 PAD Sodium Lauryl Sulfate (Phisoderm) 240 ml PRN PRN 03/14/25 20:30 03/15/25 04:00 240 ML Benzocaine (Dermoplast) 1 applic PRN PRN 03/14/25 20:30 03/15/25 04:00 1 APPLIC Misoprostol (Cytotec) 50 mcg Q4HPRN PRN 03/14/25 20:30 03/15/25 16:40 50 MCG Lidocaine HCl (Xylocaine) 20 ml ONCE PRN 03/14/25 20:30 Oxytocin 1,000 ml @ 6 ml/hr Q24H 03/14/25 22:30 Oxytocin 500 ml @ 999 mls/hr Q31M ONCE 03/14/25 22:30 03/14/25 23:00 DC Oxytocin 500 ml @ 125 mls/hr Q4H ONCE 03/14/25 23:00 03/15/25 02:59 DC Dinoprostone (Cervidil Suppository) 1 supp ONCE ONCE 03/15/25 18:30 03/15/25 18:50 DC 03/15/25 22:24 1 SUPP Laboratory Tests Test 03/14/25 20:46 Range/Units White Blood Count 9.7 4.4-10.8 10^3/uL Red Blood Count 4.32 4.0-5.20 10^6/uL Hemoglobin 13.3 12.2-16.2 g/dL Hematocrit 37.8 36.0-46.0 % Mean Corpuscular Volume 87.7 80.0-100.0 fL Mean Corpuscular Hemoglobin 30.7 28.0-32.0 pg Mean Corpuscular Hemoglobin Concent 35.0 32.0-36.0 g/dL Red Cell Distribution Width 13.5 11.8-14.3 % Platelet Count 164 140-450 10^3/uL Mean Platelet Volume 10.0 6.9-10.8 fL Neutrophils (%) (Auto) 64.9 37.0-80.0 % Lymphocytes (%) (Auto) 25.8 10.0-50.0 % Monocytes (%) (Auto) 8.8 0.0-12.0 % Eosinophils (%) (Auto) 0.3 0.0-7.0 % Basophils (%) (Auto) 0.2 0.0-2.0 % Neutrophils # (Auto) 6.3 1.6-8.6 10 ^3/uL Lymphocytes # (Auto) 2.5 0.4-5.4 10 ^3/uL Monocytes # (Auto) 0.9 0-1.3 10 ^3/uL Eosinophils # (Auto) 0 0-0.8 10 ^3/uL Basophils # (Auto) 0 0-0.2 10 ^3/uL Nucleated Red Blood Cells 0.0 % Prothrombin Time 9.9 9.3-11.8 sec Prothrombin Time INR 0.93 0.9-1.15 Activated Partial Thromboplast Time 28.2 24.5-34.5 SEC Fibrinogen 530 H 177-375 mg/dL Urine Color Colorless Yellow Urine Clarity Clear Clear Urine pH 6.5 5.0-9.0 Urine Specific [place] 1.005 1.001-1.035 Urine Protein Negative Negative Urine Ketones Negative Negative Urine Blood Negative Negative /uL Urine Nitrite Negative Negative Urine Bilirubin Negative Negative Urine Urobilinogen Normal Negative mg/dL Urine Leukocyte Esterase Negative Negative /uL Urine RBC <1 0 - 4 /hpf Urine Microscopic WBC 1 0-5 /HPF Urine Squamous Epithelial Cells Few <5 /hpf Urine Bacteria Few H None Seen /hpf Urine Glucose Normal Normal mg/dL Sodium Level 140 136-145 mmol/L Potassium Level 3.7 3.5-5.1 mmol/L Chloride Level 105 98-107 mmol/L Carbon Dioxide Level 21 20-31 mmol/L Anion Gap 14 5-15 Blood Urea Nitrogen 10 9-23 mg/dL Creatinine 0.99 0.550-1.02 mg/dL Glomerular Filtration Rate Calc 82 >90 mL/min BUN/Creatinine Ratio 10.1 10.0-20.0 Serum Glucose 76 74-106 mg/dL Uric Acid 4.7 3.1-7.8 mg/dL Calcium Level 9.3 8.7-10.4 mg/dL Total Bilirubin 0.4 0.2-1.0 mg/dL Aspartate Amino Transferase (AST) 24 13-40 U/L Alanine Aminotransferase (ALT) 16 7-40 U/L Alkaline Phosphatase 156 H 46-116 U/L Total Protein 7.2 5.7-8.2 g/dL Albumin 3.9 3.2-4.8 g/dL Urine Opiates Screen Neg NEGATIVE Urine Fentanyl Screen Neg NEGATIVE Urine Barbiturates Screen Neg NEGATIVE Urine Phencyclidine Screen Neg NEGATIVE Urine Amphetamines Screen Neg NEGATIVE Urine Benzodiazepines Screen Neg NEGATIVE Urine Cocaine Screen Neg NEGATIVE Urine Cannabinoids Screen Neg NEGATIVE Treponema pallidum Antibody Non-reactive Negative Hepatitis B Surface Antigen Negative Negative Hepatitis C Antibody Negative Negative HIV (1&2) Antibody Negative Negative Rubella Antibody Positive Assessment Assessment A: 22yo IUP@41.5wks Induction of Labor Post Dates Category I EFM Intact Membranes GBS negative Plan Plan P: Continue with Cervidil Plan to remove at 12 hours or as needed sooner per policy Discussed plan for possible CRB after Cervidil removal. Pt agrees with POC. Okay to ambulate with doppler Q1H after Cervidil removal and Cat 1 EFM. monitoring per order Pain mgmt PRN Frequent position changes in and out of bed encouraged Limit SVE unless necessary Intrauterine resuscitation PRN Anticipate CNM will consult with Dr. Arreola PRN Plan discussed with: Patient, Spouse Visit Coding OBGYN Date of Service: Mar 16, 2025 Billing Provider: VIPIN LAGOS CNM LEASES [employer]AND SUPERVISOR Common Visit Codes: [id number] INP/OBS CARE(MOD) [employer] SUPERVISOR Procedure Codes: [id number] NON-STRESS TEST VIPIN LAGOS CNM Mar 16, 2025 08:11
[2025-03-16] MEDS ORDERED: ONDANSETRON HCL 4 MG/2 ML VIAL IV PRN (09:15)
--- NOTE | 2025-03-16 12:42 | DVHPN2 ---
[facility] Labor Progress Note Date and Time Seen Date Seen: Mar 16, 2025 Time Seen: 12:24 Subjective Patient reports: No new complaints Objective Vital Signs VSS, see CPN Monitoring Method Monitoring Method: External Heart Rate Heart Rate Baseline: 155 Heart Rate Variability: Moderate Presence of FHR Accelerations: Yes Presence of FHR Decelerations: Yes Heart Rate Type of Decel: Variable Decelerations (x1) Are all 5 Components of the FH: Yes Contractions Contractions Frequency: Other (q6-7 min) Duration of Contraction: 120 Contractions Intensity: Moderate Contractions Resting Tone: Relaxed Membranes Membranes: Intact Vaginal Exam Vag Exam Deferred: No Vaginal Exam Dilation: 2 Vaginal Exam Effacement: 70 Vaginal Exam Station: -2 Vaginal Exam Presentation: VTX Vaginal Exam Show: Small Medications Medications - Pitocin: No Medications - Pain Medications: PRN Medication - Epidural: No Medication - Other s/p 5 doses of PO cytotec and cervidil Lab Results Lab Results Current Medications Medications (Trade) Dose Ordered Sig/Luis Start Time Stop Time Status Last Admin Dose Admin Lactated Ringer's 1,000 ml @ 125 mls/hr Q8H 03/14/25 20:30 03/16/25 06:08 125 MLS/HR Nalbuphine HCl (Nubain) 10 mg Q4HP PRN 03/14/25 20:30 Witch Kareen (Tucks) 1 pad PRN PRN 03/14/25 20:30 03/15/25 04:00 1 PAD Sodium Lauryl Sulfate (Phisoderm) 240 ml PRN PRN 03/14/25 20:30 03/15/25 04:00 240 ML Benzocaine (Dermoplast) 1 applic PRN PRN 03/14/25 20:30 03/15/25 04:00 1 APPLIC Misoprostol (Cytotec) 50 mcg Q4HPRN PRN 03/14/25 20:30 03/15/25 16:40 50 MCG Lidocaine HCl (Xylocaine) 20 ml ONCE PRN 03/14/25 20:30 Oxytocin 1,000 ml @ 6 ml/hr Q24H 03/14/25 22:30 Oxytocin 500 ml @ 999 mls/hr Q31M ONCE 03/14/25 22:30 03/14/25 23:00 DC Oxytocin 500 ml @ 125 mls/hr Q4H ONCE 03/14/25 23:00 03/15/25 02:59 DC Dinoprostone (Cervidil Suppository) 1 supp ONCE ONCE 03/15/25 18:30 03/15/25 18:50 DC 03/15/25 22:24 1 SUPP Ondansetron HCl (Zofran) 4 mg Q4HPRN PRN 03/16/25 09:15 Laboratory Tests Test 03/14/25 20:46 Range/Units White Blood Count 9.7 4.4-10.8 10^3/uL Red Blood Count 4.32 4.0-5.20 10^6/uL Hemoglobin 13.3 12.2-16.2 g/dL Hematocrit 37.8 36.0-46.0 % Mean Corpuscular Volume 87.7 80.0-100.0 fL Mean Corpuscular Hemoglobin 30.7 28.0-32.0 pg Mean Corpuscular Hemoglobin Concent 35.0 32.0-36.0 g/dL Red Cell Distribution Width 13.5 11.8-14.3 % Platelet Count 164 140-450 10^3/uL Mean Platelet Volume 10.0 6.9-10.8 fL Neutrophils (%) (Auto) 64.9 37.0-80.0 % Lymphocytes (%) (Auto) 25.8 10.0-50.0 % Monocytes (%) (Auto) 8.8 0.0-12.0 % Eosinophils (%) (Auto) 0.3 0.0-7.0 % Basophils (%) (Auto) 0.2 0.0-2.0 % Neutrophils # (Auto) 6.3 1.6-8.6 10 ^3/uL Lymphocytes # (Auto) 2.5 0.4-5.4 10 ^3/uL Monocytes # (Auto) 0.9 0-1.3 10 ^3/uL Eosinophils # (Auto) 0 0-0.8 10 ^3/uL Basophils # (Auto) 0 0-0.2 10 ^3/uL Nucleated Red Blood Cells 0.0 % Prothrombin Time 9.9 9.3-11.8 sec Prothrombin Time INR 0.93 0.9-1.15 Activated Partial Thromboplast Time 28.2 24.5-34.5 SEC Fibrinogen 530 H 177-375 mg/dL Urine Color Colorless Yellow Urine Clarity Clear Clear Urine pH 6.5 5.0-9.0 Urine Specific [place] 1.005 1.001-1.035 Urine Protein Negative Negative Urine Ketones Negative Negative Urine Blood Negative Negative /uL Urine Nitrite Negative Negative Urine Bilirubin Negative Negative Urine Urobilinogen Normal Negative mg/dL Urine Leukocyte Esterase Negative Negative /uL Urine RBC <1 0 - 4 /hpf Urine Microscopic WBC 1 0-5 /HPF Urine Squamous Epithelial Cells Few <5 /hpf Urine Bacteria Few H None Seen /hpf Urine Glucose Normal Normal mg/dL Sodium Level 140 136-145 mmol/L Potassium Level 3.7 3.5-5.1 mmol/L Chloride Level 105 98-107 mmol/L Carbon Dioxide Level 21 20-31 mmol/L Anion Gap 14 5-15 Blood Urea Nitrogen 10 9-23 mg/dL Creatinine 0.99 0.550-1.02 mg/dL Glomerular Filtration Rate Calc 82 >90 mL/min BUN/Creatinine Ratio 10.1 10.0-20.0 Serum Glucose 76 74-106 mg/dL Uric Acid 4.7 3.1-7.8 mg/dL Calcium Level 9.3 8.7-10.4 mg/dL Total Bilirubin 0.4 0.2-1.0 mg/dL Aspartate Amino Transferase (AST) 24 13-40 U/L Alanine Aminotransferase (ALT) 16 7-40 U/L Alkaline Phosphatase 156 H 46-116 U/L Total Protein 7.2 5.7-8.2 g/dL Albumin 3.9 3.2-4.8 g/dL Urine Opiates Screen Neg NEGATIVE Urine Fentanyl Screen Neg NEGATIVE Urine Barbiturates Screen Neg NEGATIVE Urine Phencyclidine Screen Neg NEGATIVE Urine Amphetamines Screen Neg NEGATIVE Urine Benzodiazepines Screen Neg NEGATIVE Urine Cocaine Screen Neg NEGATIVE Urine Cannabinoids Screen Neg NEGATIVE Treponema pallidum Antibody Non-reactive Negative Hepatitis B Surface Antigen Negative Negative Hepatitis C Antibody Negative Negative HIV (1&2) Antibody Negative Negative Rubella Antibody Positive Assessment Assessment A: 22yo IUP@41.5wks Induction of Labor Post Dates Category II EFM Intact Membranes GBS negative Plan Plan Start IV pitocin per order when category 1 EFM monitoring per order Pain mgmt PRN Frequent position changes in and out of bed encouraged Limit SVE unless necessary Intrauterine resuscitation PRN Anticipate CNM will consult with Dr. Arreola PRN Plan discussed with: Patient, Spouse Visit Coding OBGYN Date of Service: Mar 16, 2025 Billing Provider: VIPIN LAGOS CNM CONTACT [employer]ANT OPERATOR Common Visit Codes: [id number] INP/OBS CARE(MOD) VIPIN LAGOS CNM Mar 16, 2025 12:42
[2025-03-16] MEDS ORDERED: LACT. RINGERS/OXYTOCIN 20UNITS 1,000 ML IV SCH (12:45)
[2025-03-16] MEDS ORDERED: TERBUTALINE SULFATE 1 MG/ML 1ML VIAL SC PRN (12:45)
[2025-03-16] MEDS: LACT. RINGERS/OXYTOCIN 20UNITS 1,000 ML IV SCH (13:02)
--- NOTE | 2025-03-16 16:50 | DVHPN2 ---
CNM Labor Progress Note Date and Time Seen Date Seen: Mar 16, 2025 Time Seen: 16:25 Subjective Patient reports: Feels worse Subjective Comment Pt reports grey balloon fell out when she was walking. She had the RN turn off the IV pitocin infusion earlier due to pain. Now she wants the epidural before the IV pitocin is restarted. Objective Vital Signs VSS, see CPN Monitoring Method Monitoring Method: External Heart Rate Heart Rate Baseline: 150 Heart Rate Variability: Moderate Presence of FHR Accelerations: Yes Presence of FHR Decelerations: No Are all 5 Components of the FH: Yes Contractions Contractions Frequency: Other (q6 min) Duration of Contraction: 120 Contractions Intensity: Moderate Contractions Resting Tone: Relaxed Membranes Membranes: Intact Vaginal Exam Vag Exam Deferred: No Vaginal Exam Dilation: 4 Vaginal Exam Effacement: 80 Vaginal Exam Station: -2 Vaginal Exam Presentation: VTX Vaginal Exam Show: Small Medications Medications - Pitocin: No Medications - Pain Medications: PRN Medication - Epidural: No Medication - Other s/p 5 doses of PO cytotec, cervidil and grey balloon w/60ml saline Lab Results Lab Results Current Medications Medications (Trade) Dose Ordered Sig/Luis Start Time Stop Time Status Last Admin Dose Admin Lactated Ringer's 1,000 ml @ 125 mls/hr Q8H 03/14/25 20:30 03/16/25 06:08 125 MLS/HR Nalbuphine HCl (Nubain) 10 mg Q4HP PRN 03/14/25 20:30 Witch Kareen (Tucks) 1 pad PRN PRN 03/14/25 20:30 03/15/25 04:00 1 PAD Sodium Lauryl Sulfate (Phisoderm) 240 ml PRN PRN 03/14/25 20:30 03/15/25 04:00 240 ML Benzocaine (Dermoplast) 1 applic PRN PRN 03/14/25 20:30 03/15/25 04:00 1 APPLIC Misoprostol (Cytotec) 50 mcg Q4HPRN PRN 03/14/25 20:30 03/15/25 16:40 50 MCG Lidocaine HCl (Xylocaine) 20 ml ONCE PRN 03/14/25 20:30 Oxytocin 1,000 ml @ 6 ml/hr Q24H 03/14/25 22:30 03/16/25 13:02 6 ML/HR Oxytocin 500 ml @ 999 mls/hr Q31M ONCE 03/14/25 22:30 03/14/25 23:00 DC Oxytocin 500 ml @ 125 mls/hr Q4H ONCE 03/14/25 23:00 03/15/25 02:59 DC Dinoprostone (Cervidil Suppository) 1 supp ONCE ONCE 03/15/25 18:30 03/15/25 18:50 DC 03/15/25 22:24 1 SUPP Ondansetron HCl (Zofran) 4 mg Q4HPRN PRN 03/16/25 09:15 Terbutaline Sulfate (Brethine Inj) 0.25 mg ONCE PRN 03/16/25 12:45 Laboratory Tests Test 03/14/25 20:46 Range/Units White Blood Count 9.7 4.4-10.8 10^3/uL Red Blood Count 4.32 4.0-5.20 10^6/uL Hemoglobin 13.3 12.2-16.2 g/dL Hematocrit 37.8 36.0-46.0 % Mean Corpuscular Volume 87.7 80.0-100.0 fL Mean Corpuscular Hemoglobin 30.7 28.0-32.0 pg Mean Corpuscular Hemoglobin Concent 35.0 32.0-36.0 g/dL Red Cell Distribution Width 13.5 11.8-14.3 % Platelet Count 164 140-450 10^3/uL Mean Platelet Volume 10.0 6.9-10.8 fL Neutrophils (%) (Auto) 64.9 37.0-80.0 % Lymphocytes (%) (Auto) 25.8 10.0-50.0 % Monocytes (%) (Auto) 8.8 0.0-12.0 % Eosinophils (%) (Auto) 0.3 0.0-7.0 % Basophils (%) (Auto) 0.2 0.0-2.0 % Neutrophils # (Auto) 6.3 1.6-8.6 10 ^3/uL Lymphocytes # (Auto) 2.5 0.4-5.4 10 ^3/uL Monocytes # (Auto) 0.9 0-1.3 10 ^3/uL Eosinophils # (Auto) 0 0-0.8 10 ^3/uL Basophils # (Auto) 0 0-0.2 10 ^3/uL Nucleated Red Blood Cells 0.0 % Prothrombin Time 9.9 9.3-11.8 sec Prothrombin Time INR 0.93 0.9-1.15 Activated Partial Thromboplast Time 28.2 24.5-34.5 SEC Fibrinogen 530 H 177-375 mg/dL Urine Color Colorless Yellow Urine Clarity Clear Clear Urine pH 6.5 5.0-9.0 Urine Specific [place] 1.005 1.001-1.035 Urine Protein Negative Negative Urine Ketones Negative Negative Urine Blood Negative Negative /uL Urine Nitrite Negative Negative Urine Bilirubin Negative Negative Urine Urobilinogen Normal Negative mg/dL Urine Leukocyte Esterase Negative Negative /uL Urine RBC <1 0 - 4 /hpf Urine Microscopic WBC 1 0-5 /HPF Urine Squamous Epithelial Cells Few <5 /hpf Urine Bacteria Few H None Seen /hpf Urine Glucose Normal Normal mg/dL Sodium Level 140 136-145 mmol/L Potassium Level 3.7 3.5-5.1 mmol/L Chloride Level 105 98-107 mmol/L Carbon Dioxide Level 21 20-31 mmol/L Anion Gap 14 5-15 Blood Urea Nitrogen 10 9-23 mg/dL Creatinine 0.99 0.550-1.02 mg/dL Glomerular Filtration Rate Calc 82 >90 mL/min BUN/Creatinine Ratio 10.1 10.0-20.0 Serum Glucose 76 74-106 mg/dL Uric Acid 4.7 3.1-7.8 mg/dL Calcium Level 9.3 8.7-10.4 mg/dL Total Bilirubin 0.4 0.2-1.0 mg/dL Aspartate Amino Transferase (AST) 24 13-40 U/L Alanine Aminotransferase (ALT) 16 7-40 U/L Alkaline Phosphatase 156 H 46-116 U/L Total Protein 7.2 5.7-8.2 g/dL Albumin 3.9 3.2-4.8 g/dL Urine Opiates Screen Neg NEGATIVE Urine Fentanyl Screen Neg NEGATIVE Urine Barbiturates Screen Neg NEGATIVE Urine Phencyclidine Screen Neg NEGATIVE Urine Amphetamines Screen Neg NEGATIVE Urine Benzodiazepines Screen Neg NEGATIVE Urine Cocaine Screen Neg NEGATIVE Urine Cannabinoids Screen Neg NEGATIVE Treponema pallidum Antibody Non-reactive Negative Hepatitis B Surface Antigen Negative Negative Hepatitis C Antibody Negative Negative HIV (1&2) Antibody Negative Negative Rubella Antibody Positive Assessment Assessment A: 22yo IUP@41.5wks Induction of Labor for Post Dates Category I EFM Intact Membranes GBS negative Plan Plan Discussed the purpose of continuing the IOL with IV pitocin to reach the goal of a vaginal delivery with the pt (earlier when pt told the RN to turn off the pitocin due to increased pain and pt was declining IV pain meds/epidural at that time) Restart IV pitocin per order after pt receives epidural per her request monitoring per order Pain mgmt PRN Frequent position changes in and out of bed encouraged Limit SVE unless necessary Intrauterine resuscitation PRN Anticipate CNM will consult with Dr. Arreola PRN Plan discussed with: Patient, Spouse Visit Coding OBGYN Date of Service: Mar 16, 2025 Billing Provider: VIPIN LAGOS CNM GLASS WASHER AND CARRIER Common Visit Codes: [id number] INP/OBS CARE(MOD) VIPIN LAGOS CNM Mar 16, 2025 16:50
[2025-03-16] MEDS: LIDOCAINE HCL 2 %PF INJ 10ML AMP IJ ONE (18:45)
[2025-03-16] MEDS: NALOXONE HCL 0.4 MG/ML VIAL IV ONE (18:45)
[2025-03-16] MEDS: fentaNYL CITRATE 100 MCG/2 ML VL IV ONE (19:54)
[2025-03-16] MEDS: ROPIVACAINE HCL 100 ML ONE (19:55)
--- NOTE | 2025-03-16 19:56 | EPIDURAL ---
Anesthesia Procedural Note - Epidural Informed consent obtained?: Yes Medication Administered: Fentanyl 100 mcg Sterile prept drape: Yes Spinal level of insertion: L3-L4 Test dose of lidocaine & Epine: Negative Infusion started: Yes Start time: 19:10 End time: 19:56 Procedure description Procedure description: 25 y/o 41 4/37 weeks AOG, being induced for post dates. She is in active labor and desires PCEA for labor and delivery. Chart reviewed, H & P done, informed consent obtained, all questions answered and she wishes to proceed with PCEA. IVF bolus given. Positioned sitting. Area prepped and draped. Lidocaine 1% for skin infiltration. With Touhy G18 and loss of resistance technique, epidural spce identified. Catheter threaded and secured. Test dose negative x 2. [place] ine infusion started. Pain score improved from 5/10 to 1/10. Patient comfortable, vital signs stable throughout. Stat C/section called for non-reassuring heart tones. (See anesthesia record) Epidural catheter pulled with tip intact. No redness,swelling, or redness around epidural area. Ms Eduardo is back to baseline, able to ambulate and shankar with her daughter. Total epidural time: 1909 Total face to face time: 1909 - 1955. FRANKY HUERTAS MD Mar 16, 2025 19:56
--- NOTE | 2025-03-16 22:40 | DVHPN2 ---
CNM Labor Progress Note Date and Time Seen Date Seen: Mar 16, 2025 Time Seen: 22:30 Subjective Patient reports: Feels better (PT comfortable with epidural) Objective Vital Signs VSS see CPN Monitoring Method Monitoring Method: External Heart Rate Heart Rate Baseline: 145 Heart Rate Variability: Moderate Presence of FHR Accelerations: Yes Presence of FHR Decelerations: No Heart Rate Type of Decel: Variable Decelerations, Late Decelerations Are all 5 Components of the FH: Yes Contractions Contractions Frequency: Other (Q1-5) Duration of Contraction: 80 Contractions Intensity: Moderate Contractions Resting Tone: Relaxed Membranes Membranes: Ruptured Amniotic Fluid Color: WATCH CRYSTAL MOLDER Meconium Vaginal Exam Vag Exam Deferred: No (Cervical swelling noted) Vaginal Exam Dilation: 6 Vaginal Exam Effacement: 80 Vaginal Exam Station: -2 Vaginal Exam Presentation: VTX Vaginal Exam Show: Small Medications Medications - Pitocin: Yes (6mu) Medication - Epidural: Yes Lab Results Lab Results Vital Signs Date Time Temp Pulse Resp B/P (MAP) Pulse Ox O2 Delivery O2 Flow Rate FiO2 03/16/25 19:54 125/62 Current Medications Medications (Trade) Dose Ordered Sig/Luis Start Time Stop Time Status Last Admin Dose Admin Lactated Ringer's 1,000 ml @ 125 mls/hr Q8H 03/14/25 20:30 03/16/25 06:08 125 MLS/HR Nalbuphine HCl (Nubain) 10 mg Q4HP PRN 03/14/25 20:30 Stacy Mathur (Tucks) 1 pad PRN PRN 03/14/25 20:30 03/15/25 04:00 1 PAD Sodium Lauryl Sulfate (Phisoderm) 240 ml PRN PRN 03/14/25 20:30 03/15/25 04:00 240 ML Benzocaine (Dermoplast) 1 applic PRN PRN 03/14/25 20:30 03/15/25 04:00 1 APPLIC Misoprostol (Cytotec) 50 mcg Q4HPRN PRN 03/14/25 20:30 03/15/25 16:40 50 MCG Lidocaine HCl (Xylocaine) 20 ml ONCE PRN 03/14/25 20:30 Oxytocin 1,000 ml @ 6 ml/hr Q24H 03/14/25 22:30 03/16/25 13:02 6 ML/HR Oxytocin 500 ml @ 999 mls/hr Q31M ONCE 03/14/25 22:30 03/14/25 23:00 DC Oxytocin 500 ml @ 125 mls/hr Q4H ONCE 03/14/25 23:00 03/15/25 02:59 DC Dinoprostone (Cervidil Suppository) 1 supp ONCE ONCE 03/15/25 18:30 03/15/25 18:50 DC 03/15/25 22:24 1 SUPP Ondansetron HCl (Zofran) 4 mg Q4HPRN PRN 03/16/25 09:15 Terbutaline Sulfate (Brethine Inj) 0.25 mg ONCE PRN 03/16/25 12:45 Naloxone HCl (Narcan) 0.2 mg PRN ONCE 03/16/25 18:45 03/16/25 19:05 DC Ephedrine Sulfate (ePHEDrine SULFATE) 10 mg PRN ONCE 03/16/25 18:45 03/16/25 19:05 DC Fentanyl Citrate 100 mcg ONCE ONCE 03/16/25 18:45 03/16/25 19:05 DC 03/16/25 19:54 100 MCG Lidocaine HCl (Xylocaine-Pf 2% Injection) 10 ml ONCE ONCE 03/16/25 18:45 03/16/25 19:05 DC Lactated Ringer's 1,000 ml @ 1,000 mls/hr Q1H ONCE 03/16/25 18:45 03/16/25 19:44 DC Laboratory Tests Test 03/14/25 20:46 Range/Units White Blood Count 9.7 4.4-10.8 10^3/uL Red Blood Count 4.32 4.0-5.20 10^6/uL Hemoglobin 13.3 12.2-16.2 g/dL Hematocrit 37.8 36.0-46.0 % Mean Corpuscular Volume 87.7 80.0-100.0 fL Mean Corpuscular Hemoglobin 30.7 28.0-32.0 pg Mean Corpuscular Hemoglobin Concent 35.0 32.0-36.0 g/dL Red Cell Distribution Width 13.5 11.8-14.3 % Platelet Count 164 140-450 10^3/uL Mean Platelet Volume 10.0 6.9-10.8 fL Neutrophils (%) (Auto) 64.9 37.0-80.0 % Lymphocytes (%) (Auto) 25.8 10.0-50.0 % Monocytes (%) (Auto) 8.8 0.0-12.0 % Eosinophils (%) (Auto) 0.3 0.0-7.0 % Basophils (%) (Auto) 0.2 0.0-2.0 % Neutrophils # (Auto) 6.3 1.6-8.6 10 ^3/uL Lymphocytes # (Auto) 2.5 0.4-5.4 10 ^3/uL Monocytes # (Auto) 0.9 0-1.3 10 ^3/uL Eosinophils # (Auto) 0 0-0.8 10 ^3/uL Basophils # (Auto) 0 0-0.2 10 ^3/uL Nucleated Red Blood Cells 0.0 % Prothrombin Time 9.9 9.3-11.8 sec Prothrombin Time INR 0.93 0.9-1.15 Activated Partial Thromboplast Time 28.2 24.5-34.5 SEC Fibrinogen 530 H 177-375 mg/dL Urine Color Colorless Yellow Urine Clarity Clear Clear Urine pH 6.5 5.0-9.0 Urine Specific [place] 1.005 1.001-1.035 Urine Protein Negative Negative Urine Ketones Negative Negative Urine Blood Negative Negative /uL Urine Nitrite Negative Negative Urine Bilirubin Negative Negative Urine Urobilinogen Normal Negative mg/dL Urine Leukocyte Esterase Negative Negative /uL Urine RBC <1 0 - 4 /hpf Urine Microscopic WBC 1 0-5 /HPF Urine Squamous Epithelial Cells Few <5 /hpf Urine Bacteria Few H None Seen /hpf Urine Glucose Normal Normal mg/dL Sodium Level 140 136-145 mmol/L Potassium Level 3.7 3.5-5.1 mmol/L Chloride Level 105 98-107 mmol/L Carbon Dioxide Level 21 20-31 mmol/L Anion Gap 14 5-15 Blood Urea Nitrogen 10 9-23 mg/dL Creatinine 0.99 0.550-1.02 mg/dL Glomerular Filtration Rate Calc 82 >90 mL/min BUN/Creatinine Ratio 10.1 10.0-20.0 Serum Glucose 76 74-106 mg/dL Uric Acid 4.7 3.1-7.8 mg/dL Calcium Level 9.3 8.7-10.4 mg/dL Total Bilirubin 0.4 0.2-1.0 mg/dL Aspartate Amino Transferase (AST) 24 13-40 U/L Alanine Aminotransferase (ALT) 16 7-40 U/L Alkaline Phosphatase 156 H 46-116 U/L Total Protein 7.2 5.7-8.2 g/dL Albumin 3.9 3.2-4.8 g/dL Urine Opiates Screen Neg NEGATIVE Urine Fentanyl Screen Neg NEGATIVE Urine Barbiturates Screen Neg NEGATIVE Urine Phencyclidine Screen Neg NEGATIVE Urine Amphetamines Screen Neg NEGATIVE Urine Benzodiazepines Screen Neg NEGATIVE Urine Cocaine Screen Neg NEGATIVE Urine Cannabinoids Screen Neg NEGATIVE Treponema pallidum Antibody Non-reactive Negative Hepatitis B Surface Antigen Negative Negative Hepatitis C Antibody Negative Negative HIV (1&2) Antibody Negative Negative Rubella Antibody Positive Assessment Assessment Assessment A: 22yo IUP@41.5wks Induction of Labor for Post Dates Category II EFM SROM Meconium GBS negative Plan Plan Plan Continue Pitocin titration per order monitoring per order Pain mgmt epidural in place Frequent position changes Limit SVE unless necessary Intrauterine resuscitation PRN Anticipate CNLacey will consult with Dr. Arreola PRN Plan discussed with: Patient, Spouse Visit Coding OBGYN Date of Service: Mar 16, 2025 Billing Provider: VIPIN LAGOS CNM ROOFER APPLICATOR Common Visit Codes: [id number] INP/OBS CARE(MOD) VIPIN LAGOS CNM Mar 16, 2025 22:40
[2025-03-16] MEDS: diphenhydrAMINE HCL 50 MG/1 ML VL IV ONE ×2 (23:09→23:16)
[2025-03-16] MEDS: LACTATED RINGER'S 1,000 ML IV ONE (23:14)
[2025-03-17] VITALS (18 sets, daily range): BP systolic 90–124; BP diastolic 48–66; PULSE 72–114; RESP 16–20; TEMP 98.4–98.9; O2SAT 94–100
[2025-03-17] MEDS: ROPIVACAINE HCL 100 ML ONE (02:54)
[2025-03-17] MEDS: GENTAMICIN SULFATE 2 ML ONE (03:15)
[2025-03-17] MEDS: GENTAMICIN SULFATE 80 MG in D5W 5% 100 ML IV ONE (03:25)
[2025-03-17] MEDS ORDERED: AMPICILLIN SOD 2GM INJ 2 GM in SODIUM CHL 0.9% 100 ML IV SCH (04:30)
[2025-03-17] MEDS: AMPICILLIN SOD 1 GM VL ONE ×2 (04:40→21:36)
[2025-03-17] MEDS: SODIUM BICARB 8.4% 50Meq/50ml SYR Vial IV ONE (05:46)
[2025-03-17] MEDS: LIDOCAINE HCL 2 %PF INJ 10ML AMP IJ ONE (05:46)
[2025-03-17] MEDS ORDERED: MORPHINE SULF PF 5 MG/10 ML VIAL ONE (05:49)
[2025-03-17] MEDS ORDERED: fentaNYL CITRATE 100 MCG/2 ML VL ONE (05:49)
[2025-03-17] MEDS ORDERED: ONDANSETRON HCL 4 MG/2 ML VIAL ONE ×2 (05:50→06:19)
[2025-03-17] MEDS ORDERED: MIDAZOLAM HCL 2MG/2ML 2ml VIAL (1mg/ml) ONE (05:50)
[2025-03-17] MEDS ORDERED: SODIUM CHLORIDE LOCK 10 ML ONE (05:50)
--- NOTE | 2025-03-17 05:59 | DVHHP ---
CHIEF COMPLAINT: Failure to progress, nonreassuring heart tracing, recurrent late deceleration. HISTORY OF PRESENT ILLNESS: The patient is a 25-year-old 1, para 0 with EDC 03/04 admitted for induction of labor after multiple attempts that the patient refused induction of labor. The patient was administered Cytotec followed by Cervidil followed by Valenzuela balloon followed by Pitocin. Started having recurrent late deceleration and got stuck at 6-7 cm and -1. Cervix got swollen and baby started having more recurrent deceleration and there were signs of chorioamnionitis. Subsequently, the patient was taken for primary low transverse section. Risks, complications, indications, and alternatives were discussed with the patient. The patient fully understands and wishes to proceed with planned procedure. PAST MEDICAL HISTORY: None. PAST SURGICAL HISTORY: None. SOCIAL HISTORY: None. FAMILY HISTORY: None. OBSTETRIC/GYNECOLOGY HISTORY: Blood type A positive, rubella immune. GBS negative. ALLERGIES: No known drug allergies. REVIEW OF SYSTEMS: Consistent with HPI. PHYSICAL EXAMINATION: VITAL SIGNS: Maternal pulse of 130. Temperature 99.7. HEENT: Within normal limits. CARDIOVASCULAR: Tachy rate. LUNGS: Clear to auscultation. BREASTS: Symmetrical, no masses. ABDOMEN: Gravid. Positive heart. PELVIC: 6 cm swollen. Cervix -1. EXTREMITIES: No clubbing, cyanosis, or edema. IMPRESSION: * Intrauterine at 41+ weeks, induction of labor, failed induction. * Chorioamnionitis. * Nonreassuring heart tracing, fetus at risk. * Failure to progress. PLAN: Primary low transverse section. Informed consent obtained. Risks, complications of surgery including infection, bleeding, hematoma formation, injury to bowel or bladder, surrounding organ, postoperative DVT, pulmonary embolism, and risks of anesthesia were discussed with the patient. Options reviewed. All questions answered. The patient fully understands. She wishes to proceed with planned procedure. Janina Arreola DO MZ/CHIVO TID: [id number] RECEIPT: [id number]
[2025-03-17] MEDS ORDERED: ceFAZolin 1GM/50ML 50 ML IV SCH (06:00)
[2025-03-17] MEDS ORDERED: ONDANSETRON HCL 4 MG/2 ML VIAL IV PRN (06:00)
[2025-03-17] MEDS: GUM (CHEWING) 1 GUM CHEW CHEW ONE (06:00)
[2025-03-17] MEDS: CARBOPROST TROMETHAMINE 250 MCG/1ML VIAL IM ONE ×2 (06:17→06:35)
[2025-03-17] MEDS ORDERED: METOCLOPRAMIDE HCL 5MG/ml INJ 2ml VIAL ONE (06:19)
[2025-03-17] MEDS: TRANEXAMIC ACID 10 ML ONE (06:23)
[2025-03-17] MEDS: ceFAZolin 2 GM/D5W50ml 50 ML IV ONE (06:42)
[2025-03-17] MEDS ORDERED: MORPHINE SULFATE INJ 2 MG/ml SYRG IV PRN (06:45)
[2025-03-17] MEDS ORDERED: MORPHINE SULFATE 4 MG/ML SYR/VIAL IV PRN (06:45)
[2025-03-17] MEDS ORDERED: HYDROmorphone HCL 2 MG/ML VL/or syr IV PRN ×2 (06:45)
[2025-03-17] MEDS ORDERED: NALOXONE HCL 0.4 MG/ML VIAL IV PRN (06:45)
[2025-03-17] MEDS ORDERED: diphenhydrAMINE HCL 50 MG/1 ML VL IV PRN (06:45)
[2025-03-17] MEDS ORDERED: METOCLOPRAMIDE HCL 5MG/ml INJ 2ml VIAL IV PRN (06:45)
[2025-03-17] MEDS: DIPHENOXYLATE W/ATROPINE 2.5 MG TAB PO PRN (06:52)
[2025-03-17] MEDS ORDERED: GENTAMICIN PER PHARMACY 0 ML IV SCH (07:00)
--- NOTE | 2025-03-17 07:26 | DVHOP2 ---
Operative Report DATE OF OPERATION: 03/17/25 PREOPERATIVE DIAGNOSES: iup at 41wks failed induction,ftp,nonreassuring fht /fetus at risk,chorioamnitis POSTOPERATIVE DIAGNOSES: same,op,meconium SURGEON: Janina Arreola D.O./yesica ANESTHESIOLOGIST: candy TYPE OF ANESTHESIA : spinal CONSENT: The patient was informed of the risks and benefits of the procedure. The patient was informed of the risks and benefits of the procedure. These include but are not limited to , complications of anesthesia, postoperative infection, incomplete relief of symptoms, recurrence of symptoms, damage to blood vessels, nerves and tendons, deep venous thrombosis, pulmonary embolism and possible need for repeat surgery in the future. FINDINGS: Baby [f] with Apgars of [8] and [9]. Grossly normal appearing tubes and ovaries.op,nuchal cord,meconium PROCEDURES: Primary low transverse section. PROCEDURE IN DETAIL: The patient was taken to the operating room. She already had an epidural in place. She was then placed in supine position with a leftward tilt. A Pfannenstiel skin incision was made 2 cm above the symphysis pubis. This incision was carried to the underlying layer of fascia. The fascia was nicked in the midline. The incision was extended laterally. The superior aspect of the fascial incision was grasped and elevated. The same procedure was done to the inferior aspect of the fascial incision. The rectus muscles were then in the midline. Peritoneum was identified and entered. Peritoneal incision was extended superiorly and inferiorly with good visualization of the bladder. Bladder blade was inserted. Vesicouterine peritoneum was identified and entered. Lower uterine segment was incised in a transverse fashion. The was delivered from vertex presentation. there was meconium fld. was baby [f] with Apgars [8] and [9]. Placenta was then removed manually. Uterus was exteriorized and cleared of all clots and debris. The incision was repaired using 0 Vicryl in a double- layered fashion. No bleeding was noted. Uterus was then returned to the abdomen. The gutters were cleared off all clots and debris. Peritoneum was closed using 0 Vicryl, fascia was closed using 0 Maxon, and skin was closed usi ng elizabeth. The patient tolerated the procedure well. She was taken to the recovery room in stable condition. ESTIMATED BLOOD LOSS: Estimated blood loss was noted to be 1000 mL. Visit Coding OBGYN Date of Service: Mar 17, 2025 Billing Provider: JANINA ARREOLA DO BINDER AND BOX BUILDER Common Visit Codes: [id number] INP/OBS CARE (HIGH) BINDER AND BOX BUILDER Procedure Codes: [id number] DELIVERY ONLY JANINA ARREOLA DO Mar 17, 2025 07:26
--- NOTE | 2025-03-17 07:34 | POSTOP ---
Post-Operative Note Post-Operative Note Preop Diagnosis iup at 41wks ftp,non reassuring fht,fetus at risk,chorio Postop Diagnosis: same,meconium,op,uterine atony Operation performed pltcs Specimen baby girl,op,mec Anesthesia: Regional Anesthesiologist: candy Blood Loss(fluid mgmt) 1000ml Surgeon Janina Arreola Receiving Manager yesica Implant na Complications & Mgmt none Additional Remarks uterine atony noted which responded to hemobate Date 03/17/25 Time 07:27 Visit Coding OBGYN Date of Service: Mar 17, 2025 Billing Provider: JANINA ARREOLA DO RN WELLNESS Common Visit Codes: [id number] OBS CARE (HIGH) RN WELLNESS Procedure Codes: [id number] DELIVERY ONLY JANINA ARREOLA DO Mar 17, 2025 07:34
[2025-03-17] MEDS ORDERED: DOCU-94 PO (07:43)
[2025-03-17] MEDS ORDERED: IBUP-1456 PO (07:43)
[2025-03-17] MEDS ORDERED: CEPH500C PO (07:43)
[2025-03-17] MEDS ORDERED: HYDR-4072 PO (07:43)
[2025-03-17] MEDS ORDERED: GENTAMICIN SULFATE IV ONE (11:15)
[2025-03-17] MEDS ORDERED: D5W 5% IV ONE (11:15)
[2025-03-17] MEDS: AMPICILLIN SOD 2GM INJ 2 GM in SODIUM CHL 0.9% 100 ML IV SCH (11:33)
[2025-03-17] MEDS: D5W 5% IV ONE (13:36)
[2025-03-17] MEDS: GENTAMICIN SULFATE IV ONE (13:36)
[2025-03-17] MEDS: ceFAZolin 1GM/50ML 50 ML IV SCH (15:37)
[2025-03-17] MEDS: LACT. RINGERS/OXYTOCIN 20UNITS 500 ML IV ONE ×2 (20:02)
[2025-03-17] MEDS: SUCCINYLCHOLINE CHLORIDE 20 MG/ML 10ML VIAL IV ONE (20:03)
[2025-03-17] MEDS: LACT. RINGERS/OXYTOCIN 20UNITS 1,000 ML IV ONE (20:03)
[2025-03-17] MEDS ORDERED: ACETAMINOPHEN IV 1000 MG/100ML (10MG/ML) IV PRN (22:30)
[2025-03-17] MEDS: KETOROLAC TROMETH 30 MG/ML 1ML VIAL IV PRN (22:49)
[2025-03-17 23:01] LABS: Hematocrit 34.8 % (36.0-46.0); Hemoglobin 11.6 g/dL (12.2-16.2); Mean Corpuscular Hemoglobin 30.3 pg (28.0-32.0); Mean Corpuscular Volume 91.1 fL (80.0-100.0); Nucleated Red Blood Cells % 0.1 %
[2025-03-18] VITALS (10 sets, daily range): BP systolic 97–116; BP diastolic 55–71; PULSE 82–114; RESP 16–20; TEMP 98.3–99.1; O2SAT 94–96
--- NOTE | 2025-03-18 00:30 | DVHPN2 ---
Progress Note Date Seen: Mar 18, 2025 Subjective S: bleeding is less, eating food without issues, denies lightheaded/dizziness, pain well controlled with oral medications, due to void, passing flatus, no BM yet, ambulating well, well vital signs Vital Sign Date Time Temp Pulse Resp B/P (MAP) Pulse Ox O2 Delivery O2 Flow Rate FiO2 03/17/25 22:55 98.5 91 17 111/65 (80) 96 98.5 03/17/25 19:00 Room Air 03/17/25 07:07 0 03/17/25 07:07 100 Total Intake and Output 03/17/25 03/17/25 03/18/25 15:00 23:00 07:00 Intake Total 1450 ml Output Total 1400 ml 1300 ml Balance -1400 ml 150 ml medications Current Medications Medications Dose Ordered Sig/Luis Route Start Time Stop Time Status Last Admin Dose Admin Lactated Ringer's 1,000 ml @ 125 mls/hr Q8H IV 03/14/25 20:30 03/17/25 23:25 125 MLS/HR Stacy Mathur 1 pad PRN PRN TOP 03/14/25 20:30 03/15/25 04:00 1 PAD Benzocaine 1 applic PRN PRN TOP 03/14/25 20:30 03/15/25 04:00 1 APPLIC Lidocaine HCl 20 ml ONCE PRN IJ 03/14/25 20:30 Cancel Ondansetron HCl 4 mg Q4HPRN PRN IV 03/16/25 09:15 Oxytocin 1,000 ml @ 6 ml/hr Q24H IV 03/16/25 12:45 UNV Terbutaline Sulfate 0.25 mg ONCE PRN SC 03/16/25 12:45 Cancel Gentamicin Sulfate 0 ml @ 0 mls/hr PER PHARMACY IV 03/17/25 07:00 Ondansetron HCl 4 mg Q4HP PRN IV 03/17/25 06:00 Diphenoxylate HCl/ Atropine 5 mg Q12HP PRN PO 03/17/25 06:45 03/17/25 06:52 5 MG Diphenhydramine HCl 25 mg Q4HP PRN IV 03/17/25 06:45 Ampicillin Sodium 2 gm/Sodium Chloride 100 ml @ 100 mls/hr Q6HR IV 03/17/25 11:00 03/17/25 21:35 100 MLS/HR Cefazolin Sodium 50 ml @ 100 mls/hr Q8H IV 03/17/25 14:00 03/18/25 06:29 03/17/25 23:26 100 MLS/HR Gentamicin Sulfate 280 mg/ Dextrose 107 ml @ 100 mls/hr DAILY@1200 IV 03/18/25 12:00 Ketorolac Tromethamine 30 mg Q6HPRN PRN IV 03/17/25 22:30 03/22/25 22:29 03/17/25 22:49 30 MG Acetaminophen 1,000 mg [id number] PRN IV 03/17/25 22:30 03/18/25 22:29 laboratory and microbiology Laboratory Tests 03/17/25 22:33 03/14/25 20:46 Test 03/14/25 20:46 Range/Units Serum Glucose 76 74-106 mg/dL Objective O: VSS Chest: heart sounds normal and lung sounds clear bilaterally Abd: soft, non-tender, fundus 1-U/firm/midline, active bowel sounds, no rebound or guarding Incision: sylke dressing open to air, clean/dry/intact Ext: Non-tender, No edema, 2+ BLE DTRs Lochia: minimal See lab results Problems(with codes): (1) S/P primary low transverse Assessment/Plan A/P: 25yo now PPD#1 s/p primary chorioamnionitis -continue amp and gent for 24 hours post delivery -continue routine post op pp care Plan discussed with: Patient, Spouse Visit Coding OBGYN Date of Service: Mar 18, 2025 Billing Provider: VIPIN LAGOS CNM CASHIER SELF SERVICE GASOLINE Common Visit Codes: [id number] INP/OBS CARE(HIGH) VIPIN LAGOS CNM Mar 18, 2025 00:30
[2025-03-18] MEDS ORDERED: HYDROcodone-ACET 5/325MG TAB PO PRN ×2 (06:45)
[2025-03-18] MEDS: IBUPROFEN 800 MG TAB PO PRN (07:31)
[2025-03-18 08:14] LABS: Hematocrit 30.9 % (36.0-46.0); Hemoglobin 10.6 g/dL (12.2-16.2); Mean Corpuscular Hemoglobin 30.7 pg (28.0-32.0); Mean Corpuscular Volume 89.2 fL (80.0-100.0); Nucleated Red Blood Cells % 0.0 %
[2025-03-18] MEDS: GENTAMICIN SULFATE 280 MG in D5W 5% 100 ML IV SCH (12:59)
[2025-03-18] MEDS ORDERED: ceFAZolin 1GM/50ML 50 ML IV SCH (16:00)
[2025-03-18] MEDS: ceFAZolin 1GM/50ML 50 ML IV SCH (16:17)
[2025-03-18] MEDS ORDERED: SIMETHICONE 80 MG CHEWABLE TABLET PO SCH (22:00)
[2025-03-18] MEDS ORDERED: DOCUSATE SOD 100 MG CAP PO SCH (22:00)
[2025-03-18] MEDS: DOCUSATE SOD 100 MG CAP PO SCH (22:24)
[2025-03-18] MEDS: SIMETHICONE 80 MG CHEWABLE TABLET PO SCH (22:24)
--- NOTE | 2025-03-19 04:52 | DVHPN2 ---
Progress Note Date Seen: Mar 19, 2025 Subjective S: > Lochia minimal. > Regular diet well tolerated. > Ambulating and voiding well w/o feeling dizzy or lightheaded. > Pain relieved with oral analgesics. > Passing flatus but no BM yet. w/o problem > Desires & Requests to be discharged today /tomorrow vital signs Vital Sign Date Time Temp Pulse Resp B/P (MAP) Pulse Ox O2 Delivery O2 Flow Rate FiO2 03/18/25 23:00 98.7 16 111/62 (78) 95 98.7 03/18/25 19:00 Room Air 03/18/25 03:00 91 03/17/25 07:07 0 03/17/25 07:07 100 Total Intake and Output 03/18/25 03/18/25 03/19/25 15:00 23:00 07:00 Output Total 1000 ml Balance -1000 ml medications Current Medications Medications Dose Ordered Sig/Luis Route Start Time Stop Time Status Last Admin Dose Admin Lactated Ringer's 1,000 ml @ 125 mls/hr Q8H IV 03/14/25 20:30 03/17/25 23:25 125 MLS/HR Witch Kareen 1 pad PRN PRN TOP 03/14/25 20:30 03/15/25 04:00 1 PAD Benzocaine 1 applic PRN PRN TOP 03/14/25 20:30 03/15/25 04:00 1 APPLIC Lidocaine HCl 20 ml ONCE PRN IJ 03/14/25 20:30 Cancel Oxytocin 1,000 ml @ 6 ml/hr Q24H IV 03/16/25 12:45 UNV Terbutaline Sulfate 0.25 mg ONCE PRN SC 03/16/25 12:45 Cancel Diphenoxylate HCl/ Atropine 5 mg Q12HP PRN PO 03/17/25 06:45 03/17/25 06:52 5 MG Ibuprofen 800 mg Q8HP PRN PO 03/18/25 06:45 03/18/25 15:04 800 MG Acetaminophen/ Hydrocodone Bitart 1 tab Q4HPRN PRN PO 03/18/25 06:45 Acetaminophen/ Hydrocodone Bitart 2 tab Q4HPRN PRN PO 03/18/25 06:45 Cefazolin Sodium 50 ml @ 100 mls/hr Q8H IV 03/18/25 16:00 03/18/25 23:31 100 MLS/HR Docusate Sodium 100 mg Q12HR PO 03/18/25 22:00 03/18/25 22:24 100 MG Dimethicone 80 mg QID PO 03/18/25 22:00 03/18/25 22:24 80 MG laboratory and microbiology Laboratory Tests 03/18/25 07:40 03/14/25 20:46 Test 03/14/25 20:46 Range/Units Serum Glucose 76 74-106 mg/dL Objective O: A&O x3 NAD. Afebrile, VSS Chest: heart and lung sounds normal. Breasts: Nipples intact w/o cracks or soreness Abdomen: normal BS, soft, non-tender, no rebound or guarding, fundus firm @ U- 1, Lower abdominal Incision site with steri-strips on, same clean, dry and intact, edges in good approximation. No edema, erythema or induration Extremities: no edema or tenderness Lochia - minimal Assessment/Plan > 25 yo now Post operative & ppd #2 > 2days s/p Primary Section doing well. > Chorioamnionitis > Blood Type: A Rh: Positive > Breast feeding > Rubella Immune > Pain control with oral medications > Bowel regimen: Increase fluid intake and fiber in diet, Laxative PRN > PP BCM Plan: Contemplating IUD > Discharge plan: May discharge home later today if condition remains stable Plan discussed with: Patient, Spouse Visit Coding OBGYN Date of Service: Mar 19, 2025 Billing Provider: BECKY HEREDIA CNM CULTURAL CENTRE MANAGER Common Visit Codes: [id number] INP/OBS CARE(HIGH) BECKY HEREDIA CNM Mar 19, 2025 04:52
--- NOTE | 2025-03-19 05:13 | DVHDS2 ---
Discharge Summary Date of Admission Mar 14, 2025 at 20:14 Date of Discharge: Mar 19, 2025 Admitting Diagnosis > IUP at 41w 3d > GBS Neg > IOL for above Wounds: C- section incision C/D/I with steri-strips on Labs/Diagnostic Data: Laboratory Results Test 03/18/25 07:40 03/17/25 22:33 03/14/25 20:46 White Blood Count 11.4 10^3/uL (4.4-10.8) Red Blood Count 3.46 10^6/uL (4.0-5.20) Hemoglobin 10.6 g/dL (12.2-16.2) Hematocrit 30.9 % (36.0-46.0) Mean Corpuscular Volume 89.2 fL (80.0-100.0) Mean Corpuscular Hemoglobin 30.7 pg (28.0-32.0) Mean Corpuscular Hemoglobin Concent 34.4 g/dL (32.0-36.0) Red Cell Distribution Width 13.4 % (11.8-14.3) Platelet Count 128 10^3/uL (140-450) Mean Platelet Volume 9.7 fL (6.9-10.8) Neutrophils (%) (Auto) 76.7 % (37.0-80.0) Lymphocytes (%) (Auto) 15.3 % (10.0-50.0) Monocytes (%) (Auto) 7.8 % (0.0-12.0) Eosinophils (%) (Auto) 0.1 % (0.0-7.0) Basophils (%) (Auto) 0.1 % (0.0-2.0) Neutrophils # (Auto) 8.8 10 ^3/uL (1.6-8.6) Lymphocytes # (Auto) 1.7 10 ^3/uL (0.4-5.4) Monocytes # (Auto) 0.9 10 ^3/uL (0-1.3) Eosinophils # (Auto) 0 10 ^3/uL (0-0.8) Basophils # (Auto) 0 10 ^3/uL (0-0.2) Nucleated Red Blood Cells 0.0 % Creatinine 0.78 mg/dL (0.550-1.02) Glomerular Filtration Rate Calc 109 mL/min (>90) Random Gentamicin Level 1.2 ug/mL (0-5) Prothrombin Time 9.9 sec (9.3-11.8) Prothrombin Time INR 0.93 (0.9-1.15) Activated Partial Thromboplast Time 28.2 SEC (24.5-34.5) Fibrinogen 530 mg/dL (177-375) Urine Color Colorless (Yellow) Urine Clarity Clear (Clear) Urine pH 6.5 (5.0-9.0) Urine Specific [place] 1.005 (1.001-1.035) Urine Protein Negative (Negative) Urine Ketones Negative (Negative) Urine Blood Negative /uL (Negative) Urine Nitrite Negative (Negative) Urine Bilirubin Negative (Negative) Urine Urobilinogen Normal mg/dL (Negative) Urine Leukocyte Esterase Negative /uL (Negative) Urine RBC <1 /hpf (0 - 4) Urine Microscopic WBC 1 /HPF (0-5) Urine Squamous Epithelial Cells Few /hpf (<5) Urine Bacteria Few /hpf (None Seen) Urine Glucose Normal mg/dL (Normal) Sodium Level 140 mmol/L (136-145) Potassium Level 3.7 mmol/L (3.5-5.1) Chloride Level 105 mmol/L (98-107) Carbon Dioxide Level 21 mmol/L (20-31) Anion Gap 14 (5-15) Blood Urea Nitrogen 10 mg/dL (9-23) BUN/Creatinine Ratio 10.1 (10.0-20.0) Serum Glucose 76 mg/dL (74-106) Uric Acid 4.7 mg/dL (3.1-7.8) Calcium Level 9.3 mg/dL (8.7-10.4) Total Bilirubin 0.4 mg/dL (0.2-1.0) Aspartate Amino Transferase (AST) 24 U/L (13-40) Alanine Aminotransferase (ALT) 16 U/L (7-40) Alkaline Phosphatase 156 U/L (46-116) Total Protein 7.2 g/dL (5.7-8.2) Albumin 3.9 g/dL (3.2-4.8) Urine Opiates Screen Neg (NEGATIVE) Urine Fentanyl Screen Neg (NEGATIVE) Urine Barbiturates Screen Neg (NEGATIVE) Urine Phencyclidine Screen Neg (NEGATIVE) Urine Amphetamines Screen Neg (NEGATIVE) Urine Benzodiazepines Screen Neg (NEGATIVE) Urine Cocaine Screen Neg (NEGATIVE) Urine Cannabinoids Screen Neg (NEGATIVE) Treponema pallidum Antibody Non-reactive (Negative) Hepatitis B Surface Antigen Negative (Negative) Hepatitis C Antibody Negative (Negative) HIV (1&2) Antibody Negative (Negative) Rubella Antibody Positive Other Laboratory Tests 03/18/25 07:40 03/14/25 20:46 Brief Hx & Hospital Course: Ms Montoya was admitted on 03/14/25 at 41w 3d EGA for IOLfor postdates. Induction process started with cervical ripening medication, followed by oxytocin. Patient got labor epidural for pain relief. She later developed chorio-amnionitis and had to delivered via primary on 03/17/25 as she was remote from delivery. ( See Operation Note for details) Normal course; meeting milestones w/o any problem or complications. Operations or Procedures > IOL > EFM > Primary LS CS > Antibiotics therapy Condition at Discharge: Good Final Diagnosis/Problems List same,meconium,chorioamnionitis, Primary C- section ,uterine atony Secondary Diagnosis: Anemia Discharge Disposition: Home Discharge Instruct/Medications Diet: Regular Diet comment: Routine regular diet rich in fiber, protein, iron and vitamin C with adequate fluid intake Activity: Activity comment: Advance as tolerated. Balance activities with rest periods. No heavy lifting, pushing or straining. Pelvic rest x 6weeks Follow Up/Referral: Follow up with OB Provider in 1 week Medications: Cephalexin, Hyddrocodone-Acetaminophen, Ibuprofen. Continue vitamin and iron Scheduled Cephalexin Monohydrate (Cephalexin), 500 MG PO QID Docusate Sodium (Colace), 1 CAP PO BID Metronidazole (Flagyl), 500 MG PO BID, (Reported) Vit W/ Ferrous Fumara ( One Daily), 1 TAB PO DAILY, (Reported) Scheduled PRN Hydrocodone-Acetaminophen (Hydrocodone/Acetaminophen 10-325 mg), 1 TAB PO Q6HPRN PRN Ibuprofen (Ibuprofen), 800 MG PO TID PRN 40 Discharge Statement: "Patient was advised to return to the ER or call 911 if any headaches, dizziness, shortness of breath, chest pain, abdominal pain, bleeding, fevers, or worsening of medical condition. Patient was counseled about treatment plan, medications, possible side effects, patientverbalized understanding. All questions were answered to the best of my ability. This discharge took greater then 30 minutes in planning, reviewing documentation, counseling the patient, and discussing with other team members." ASSESSMENT ASSESSMENT Hospital Course Ms Montoya was admitted on 03/14/25 at 41w 3d EGA for IOL for postdates. Induction process started with cervical ripening medication, followed by oxytocin. Patient got labor epidural for pain relief. She later developed chorio-amnionitis and had to delivered via primary on 03/17/25 as she was remote from delivery. ( See Operation Note for details) Normal course; meeting milestones w/o any problem or complications. Assessment same,meconium,op,uterine atony Problems: (1) S/P primary low transverse Assessments: Normal Post operative couse Visit Coding OBGYN Date of Service: Mar 19, 2025 Billing Provider: BECKY HEREDIA CNM [employer] Common Visit Codes: 78700-WXV/OBS DISCH DAY >30MIN BECKY HEREDIA CNM Mar 19, 2025 05:13
[2025-03-19 07:30] VITALS: BP 94/50; PULSE 84; RESP 17; TEMP 98.3; O2SAT 95
[2025-03-19 10:16] VITALS: BP 94/50; PULSE 84; RESP 17; TEMP 98.3; O2SAT 95
== END 2025-03-19 10:16 | disposition home or self-care (01) | DRG 540 ==
LOC: LDRP 20:14
PROVIDERS: ADMIT Obstetrics & Gynecology; ATTEND Obstetrics & Gynecology
PROC: 10D00Z1 Extraction of Products of Conception, Low, Open Approach (ICD-10-PCS; principal; 2025-03-17 05:57)
DX: O48.0 Post-term pregnancy (principal); O41.1230 Chorioamnionitis, third trimester, not applicable or unspecified; Z37.0 Single live birth; O62.2 Other uterine inertia; O69.81X0 Labor and delivery complicated by cord around neck, without compression, not applicable or unspecified; O77.0 Labor and delivery complicated by meconium in amniotic fluid; Z3A.41 41 weeks gestation of pregnancy; O90.81 Anemia of the puerperium
CPT/HCPCS: 36415; 59025; 62282; 76805; 80053; 80170; 80307; 81001; 82565; 84550; 85025; 85384; 85610; 85730; 86703; 86762; 86780; 86803; 86850; 86900; 86901; 87340; 94760; 94762; 96360; 96361; 96365; 96366; 96374; A4344; G0378; J0330; J1100; J1885; J2250; J2405; J2590; J7060